=== PATIENT | male | born 1960 | race Caucasian/White ===

== ENCOUNTER 2022-10-08 11:10 | Outpatient (AMB) | payer BC, SELFPAY ==
--- NOTE | 2022-10-08 11:19 | A.OFFPC_ITS ---
Vital Signs 10/08/22 11:20 Height 5 ft 10 in Weight 289 lb 4 oz BMI 41.5 BP 120/68 Blood Pressure Location Rt brachial Position Sitting Respiration 12 Pulse 63 Pulse Source Pulse Oximeter Temp 98.5 F Temp Source Oral Pulse Oximetry (%) 98 Intake Visit Reasons: New patient-High BP, high cholesterol, sleep apnea Intake Note: Patient is here as a new patient with history of high blood pressure, high cholesterol, and sleep apnea. Allergies No Known Allergies Allergy (Verified 10/08/22 11:47) Tobacco use date assessed: 10/08/22 Dental Screening Dental Screen Date: 10/08/22 Did you have a dental visit in the last 12 months?: Yes Did you have a dental problem in the last 6 months where you did not have access to dental care?: No Was dental information given to patient?: Patient has dentist HPI HPI Comments History of Present Illness Details 62-year-old male presents to [facility] care He notes he relocated from [place] in October 2018 He notes he was last evaluated by his former PCP/Family Practice in [place], and had blood work done 2-3 months ago He reports PMH significant for HTN, HLD, and BOUBACAR. He is on Lisniopril, Simvastatin, and ASA. He uses a CPAP device for sleep. He requests a referral to get fitted for new CPAP device. He offers no complaints at this time. He notes he had colonoscopy 2-3 months ago: one benign polyp; f/u in 7 years He states he has not received the shingrix vaccines and intends to get vaccinated [facility] Medical History (Updated 10/08/22 @ 12:14 by Tc Bingham CNP) High blood pressure High cholesterol Sleep apnea Surgical History (Updated 10/08/22 @ 11:30 by Radha Loving CMA) H/O left knee surgery History of cholecystectomy History of dental surgery Family History (Updated 10/08/22 @ 11:33 by Radha Loving CMA) Mother Early onset Alzheimer's dementia Ovarian cancer Father Lung cancer Emphysema lung Sister Stroke Social History (Updated 10/08/22 @ 11:35 by Radha Loving CMA) Household Members: Spouse Housing: House Are you a primary transitional care manager to a significant other at home: No Do you presently have visiting nurse or other home services: No 75 years or older and lives alone: No Alcohol intake: former Patient Tobacco Use Status: Never used Tobacco e-Cigarette/Vaping Use: Never Used Special eliza needs: No service: No Current occupational status: employed Current occupation: sales Cognitive needs: No Hearing needs: No Vision needs: Yes (reading glasses) Questionnaire PHQ-9 Over the last 2 weeks, how often have you been bothered by any of the following problems? 1. Little interest or pleasure in doing things: not at all 2. Feeling down, depressed, or hopeless: not at all 3. Trouble falling or staying asleep, or sleeping too much: not at all 4. Feeling tired or having little energy: several days 5. Poor appetite or overeating: not at all 6. Feeling bad about yourself - or that you are a failure or have let yourself or your family down: not at all 7. Trouble concentrating on things, such as reading the newspaper or watching television: not at all 8. Moving or speaking so slowly that other people could have noticed. Or the opposite - being so fidgety or restless that you have been moving around a lot more than usual: not at all 9. Thoughts that you would be better off or of hurting yourself in some way: not at all Total score: 1 Depression Screening Interpretation: Negative Source: Developed by Drs. Nikko Sharma, Faby Lozada, Luis Carlos House and colleagues, with an educational jesus from [employer]. Thrive Questionnaire I am a: Patient What is your living situation today?: I have a steady place to live Within the past 12 months, did the food you bought not last and you didn't have the money to get more?: Never true Within the past 12 months, did you worry whether your food would run out before you got money to buy more?: Never true Do you have trouble paying for medicines?: No Do you have trouble getting transportation to medical appointments?: No Do you have trouble paying your heating and electricity bill?: No Do you have trouble taking care of your child, family member or friend?: No Do you have trouble with day-to-day activities such as bathing, preparing meals, shopping, managing finances, etc.?: No Are you currently unemployed and looking for a job?: No Are you interested in more education?: No AUDIT C Alcohol Use Questionnaire (AUDIT-C) 1. How often do you have a drink containing alcohol?: Never 3. How often do you have six or more drinks on one occasion?: Never Total Score: 0 KALA-7 AMB Questionnaire KALA-7 Feeling nervous, anxious, or on edge: 0 = Not at all Not being able to stop or control worryin = Not at all Worrying too much about different things: 0 = Not at all Trouble relaxin = Not at all Being so restless that it is hard to sit still: 0 = Not at all Becoming easily annoyed or irritable: 1 = Several days Feeling afraid as if something awful might happen: 0 = Not at all Total KALA-7 score (0-4 normal; 5-9 mild; 10-14 moderate; 15-21 severe): 1 Source: Developed by Drs. Nikko Sharma, Faby Lozada, Luis Carlos House and colleagues, with an educational jesus from [employer]. Review of Systems Const Details: Denies chills, Denies fatigue, Denies fever(s), Denies headache(s) and Denies weakness HEENT Denies change in vision, Denies dizziness, Denies headache(s), Denies hearing loss, Denies nasal congestion, Denies sinus pain, Denies sinus pressure and Denies sore throat Card Denies chest pain, Denies lightheadedness, Denies dyspnea and Denies other (palpitations) Resp Denies cough, Denies dyspnea and Denies wheezing GI Denies abdominal pain, Denies melena, Denies hematochezia, Denies change in hilairo l habits, Denies dyspepsia and Denies nausea Denies hematuria and Denies dysuria Musc Denies abnormal gait, Denies myalgias, Denies arthralgias, Denies numbness and Denies tingling Skin/Breast Denies rash, Denies unusual bruising and Denies wounds Neuro Denies abnormal gait, Denies dizziness, Denies headache(s), Denies memory loss, Denies numbness, Denies Sensory deficit (Neuro), Denies tingling and Denies weakness Psych Denies anxiety, Denies depression and Denies memory loss Endo Denies cold intolerance, Denies fatigue, Denies heat intolerance, Denies polydipsia and Denies polyuria Arias/Lymph Denies easy bleeding and Denies easy bruising Aller/Immun Denies wheezing Physical exam (Primary Care) Vital Signs: Last Vital Signs Temp 98.5 F 10/08/22 11:20 Pulse 63 10/08/22 11:20 Resp 12 10/08/22 11:20 BP 120/68 10/08/22 11:20 Pulse Ox 98 10/08/22 11:20 BMI result Body Mass Index 41.5 Tobacco/Smoking Status: Tobacco use Status Tobacco use date assessed 10/08/22 10/08/22 11:35 Patient Tobacco Use Status Never used Tobacco 10/08/22 11:35 e-Cigarette/Vaping Use Never Used 10/08/22 11:35 PHQ-9: PHQ-9 Score PHQ-9: Total score 1 10/08/22 11:49 Depression Screening Interpretation: Negative Const Other: General: no acute distress, well developed, alert and awake Nutritional Appearance: well nourished Orientation/consciousness: patient oriented x3 HENMT Head: Yes normocephalic and Yes atraumatic Ears: hearing grossly normal bilaterally and TM's normal bilaterally General nose exam: Normal external nose present and Normal nares present Mouth: Normal oral and palatal mucosa present and moist mucous membranes Teeth and gingiva: dentition normal Throat: Yes oropharynx normal Eyes Pupils: Equal, round and reactive pupils present and Pupil accommodation reflex normal EOM: EOMs intact bilaterally Neck Neck: Yes normal visual inspection, Yes no lymphadenopathy and Yes trachea midline Thyroid: Thyroid normal Carotids: no bruits Lymphatic: no lymphadenopathy noted Chest Chest palpation & inspection: normal inspection of the chest Resp Effort & Inspection: normal respiratory effort Auscultation: clear to auscultation bilaterally Cardio Rate: regular rate Rhythm: regular rhythm Heart sounds: S1 normal heart sound present, S2 normal heart sound present, no gallops, no murmurs and no rubs Bruits: no abdominal aortic bruits and no carotid bruits GI Palpation (GI): No Abdominal aortic bruit present, Soft to palpation, nontender, No hepatosplenomegaly present and No Rebound tenderness present Auscultation: normal bowel sounds General: Yes no CVA tenderness Back/Spine/Pelvis Back: no CVA tenderness Cervical Spine: cervical ROM normal and No Cervical spine tenderness Thoracic/Lumbar Spine: thoraco-lumbar ROM normal, No pain with thoraco-lumbar ROM, No thoracic spinal tenderness and No lumbar spinal tenderness Skin General: warm and dry. Normal skin color. Normal skin turgor Lesions: no lesions Rashes: no rashes Trauma: no lacerations or abrasions Wounds: no wounds Nails: normal Neuro General: patient oriented x3, gait normal and CN's II-XI intact bilaterally Cranial nerves: Yes Equal, round and reactive pupils present Cognition (Neuro): normal cognition Gait exam (Neuro): Normal gait present Motor exam (neuro): 5/5 motor strength present throughout Sensory Exam: No Sensory deficit (Neuro) Deep tendon reflexes (DTR's): Right patellar reflex intensity grade: 2+ and Left patellar reflex intensity grade: 2+ Extrem General: Yes normal to inspection, No edema and No calf tenderness Psych Appearance: grossly normal Affect: normal affect Attitude: cooperative Thought process: Normal thought process present Assessment and Plan Assessment & Plan (1) Normal physical examination, routine: Code(s): Z00.00 - Encounter for general adult medical examination without abnormal findings Plan: No significant physical restrictions or limitations noted Awaiting health record from his previous provider for review, including labs Follow-up in 1 month for hypertension and hyperlipidemia Return sooner with symptoms or concerns Verbalized understanding and agreed with treatment plan. (2) High blood pressure: Code(s): I10 - Essential (primary) hypertension Plan: Blood pressure is 120/68, within goal of less than 140/90 Lisinopril as prescribed Low-sodium diet encouraged Verbalized understanding and agreed with treatment plan. (3) High cholesterol: Code(s): E78.00 - Pure hypercholesterolemia, unspecified Plan: Will review lipid panel once previous record is received and reviewed Simvastatin as prescribed Advised to limit foods high in saturated fat and avoid foods high trans fat Routine exercise encouraged Verbalized understanding and agreed with treatment plan. (4) Sleep apnea: Code(s): G47.30 - Sleep apnea, unspecified Plan: He reports history of ASA and uses a CPAP device for sleep. He requests a re ferral to get fitted for new CPAP device. Referred to sleep medicine Return with symptoms or concerns Verbalized understanding and agreed with treatment plan. (5) Vaccine counseling: Code(s): Z71.85 - Encounter for immunization safety counseling Plan: He states he has not received the shingrix vaccines and intends to get vaccinated. Instructed on importance of vaccination and encouraged to get the Shingrix vaccines Verbalized understanding and agreed with the plan. Orders: Referrals Sleep Medicine Referral G47.30 - Sleep apnea, unspecified Coding Level of Care Code New Pt Prev Care 40-64y(90146) Diagnoses Normal physical examination, routine Z00.00 High blood pressure I10 High cholesterol E78.00 Sleep apnea G47.30 Vaccine counseling Z71.85
[2022-10-08 11:20] VITALS: BP 120/68; PULSE 63; RESP 12; TEMP 36.9; O2SAT 98; BMI 41.5
== END 2022-10-08 12:07 | disposition home or self-care (01) ==
PROVIDERS: PCP Nurse Practitioner Family; Visit Provider Nurse Practitioner Family
DX: Z00.00 Encounter for general adult medical examination without abnormal findings (principal); I10 Essential (primary) hypertension; E78.00 Pure hypercholesterolemia, unspecified; G47.30 Sleep apnea, unspecified; Z71.85 Encounter for immunization safety counseling
CPT/HCPCS: 99386

== ENCOUNTER 2022-10-31 13:49 | Outpatient (AMB) | payer BC, SELFPAY ==
--- NOTE | 2022-10-31 14:03 | MHC.OFFVIS ---
Intake Vital Signs 10/31/22 14:04 Height 5 ft 10 in Weight 292 lb 2 oz BMI 41.9 BP 150/80 H Blood Pressure Location Rt brachial Position Sitting Pulse 52 Pulse Source Pulse Oximeter Pulse Oximetry (%) 97 Oxygen Delivery Method Room Air Intake Visit Reasons: I-[employer] INST[employer]ER: Sleep Apnea-confirmed Intake Note: Patient presents for sleep apnea. Patient states I've had the machine for 10 years now i just need prescription for my machine. Allergies No Known Allergies Allergy (Verified 10/31/22 14:06) HPI HPI Comments History of Present Illness Details 62 y/o male patient with hx of HTN and HLD presents for new in-person visit to manage BOUBACAR. Pt reports that he was diagnosed with BOUBACAR about 10 years ago, and has been using CPAP. He had received a new CPAP two years ago, but has not received supplies for a while. He moved from [place] to [place] and his primary care also has changed. He has been purchasing CPAP supplies from online. His current mask and headgears are worn out and loose. His home care company is [employer] [facility] [employer]. He states that he uses his CPAP nightly, sleeps well with CPAP about 8-10 hours. He is rested and wakes up refreshed in the morning. Denies daytime tiredness of sleepiness. [facility] Medical History (Updated 10/31/22 @ 15:37 by Dominic Ayala CNP) High blood pressure High cholesterol Sleep apnea Surgical History History of dental surgery H/O left knee surgery History of cholecystectomy Family History Mother Early onset Alzheimer's dementia Ovarian cancer Father Lung cancer Emphysema lung Sister Stroke Social History (Updated 10/08/22 @ 11:35 by Radha Loving CMA) Household Members: Spouse Housing: House Are you a primary technical healthcare consultant to a significant other at home: No Do you presently have visiting nurse or other home services: No 75 years or older and lives alone: No Alcohol intake: former Patient Tobacco Use Status: Never used Tobacco e-Cigarette/Vaping Use: Never Used Special eliza needs: No service: No Current occupational status: employed Current occupation: sales Cognitive needs: No Hearing needs: No Vision needs: Yes (reading glasses) Review of Systems Const All systems reviewed & are unremarkable except as noted in HPI and below ENT Reports Normal hearing present Neuro Reports Normal hearing present Physical Exam Vital Signs: Last Vital Signs Pulse 52 10/31/22 14:04 BP 150/80 H 10/31/22 14:04 Pulse Ox 97 10/31/22 14:04 Oxygen Delivery Method Room Air 10/31/22 14:04 BMI result Body Mass Index 41.9 Const General: cooperative Nutritional Appearance: obese Orientation/consciousness: patient oriented x3 Neck Neck: Yes full ROM and Yes supple Resp Effort & Inspection: normal respiratory effort and able to speak in complete sentences Neuro General: patient oriented x3, gait normal and moves all extremities Cranial nerves: Yes Bilaterally intact EOM present, Yes Normal facial strength present, Yes Midline tongue present, Yes Symmetric palate elevation present, Yes Normal hearing present, Yes Ability to bilaterally rotate head present and Yes Ability to bilaterally elevate shoulders present Cognition (Neuro): normal cognition Gait exam (Neuro): Normal gait present Motor exam (neuro): 5/5 motor strength present throughout, Pronator motor function not present and no tremor noted Psych Appearance: grossly normal Mental Status: mental status grossly normal Speech and movement: Normal speech and movement present Affect: normal affect Attitude: cooperative Assessment & Plan Assessment & Plan (1) BOUBACAR on CPAP: Code(s): G47.33 - Obstructive sleep apnea (adult) (pediatric) Plan Advised patient to continue to use CPAP nightly and more than 4 hrs. Pt experiences good clinical effects using CPAP, having quality sleep and daytime tiredness has improved. Will request CPAP compliance. Called [facility] and started supply order processing. Will send new CPAP supply prescription. Coding Level of Care Code New Pt Level 4 (72920) Diagnoses BOUBACAR on CPAP G47.33 Time Spent (min) 55
[2022-10-31 14:04] VITALS: BP 150/80; PULSE 52; O2SAT 97; BMI 41.9
== END 2022-10-31 15:05 | disposition home or self-care (01) ==
PROVIDERS: PCP Nurse Practitioner Family; Visit Provider Nurse Practitioner Family
DX: G47.33 Obstructive sleep apnea (adult) (pediatric) (principal)
CPT/HCPCS: 99204

== ENCOUNTER → 2022-10-31 13:49 | Outpatient (BNVA) | payer BC, SELFPAY | PROVIDERS: PCP Nurse Practitioner Family; Visit Provider Nurse Practitioner Family ==

== ENCOUNTER 2023-01-14 11:41 | Outpatient (AMB) | payer BC, SELFPAY ==
[2023-01-14 11:44] VITALS: BP 136/76; PULSE 66; RESP 13; TEMP 36.5; O2SAT 97; BMI 43.2
--- NOTE | 2023-01-14 11:44 | A.OFFPC_ITS ---
Vital Signs 01/14/23 11:44 Height 5 ft 10 in Weight 301 lb 6 oz BMI 43.2 BP 136/76 Blood Pressure Location Rt brachial Position Sitting Respiration 13 Pulse 66 Pulse Source Pulse Oximeter Temp 97.7 F Temp Source Temporal Artery Scan Pulse Oximetry (%) 97 Oxygen Delivery Method Room Air Intake Visit Reasons: 3 mos HTN, HLD Intake Note: Patient is concerned about swelling in his right knee. Patient states that hes been sleeping with C-PAP machine but still wakes up tired. Patient states he hasn't been feeling like himself and eels a bit off and has been experiencing a little bit of light headedness and has become unbalanced. Resource Director Required: No Accompanied by: Spouse Allergies No Known Allergies Allergy (Verified 01/14/23 12:26) Medication List - Last Reconciled 01/14/23 by Tc Bingham CNP aspirin (Adult Aspirin Regimen) 81 mg PO DAILY elderberry fruit mg PO BEDTIME lisinopril 5 mg PO DAILY simvastatin 40 mg PO DAILY Tobacco use date assessed: 10/08/22 Dental Screening Dental Screen Date: 01/14/23 Did you have a dental visit in the last 12 months?: Yes Did you have a dental problem in the last 6 months where you did not have access to dental care?: No Was dental information given to patient?: Patient has dentist HPI HPI Comments History of Present Illness Details 62-year-old male, accompanied by his wif angely, presents for hypertension and hyperlipidemia follow-up He had blood work done by his former PCP before his last visit. Those lab results were requested for review but has not been received He admits to taking his medications as prescribed without adverse reactions He reports intermittent fatigue and lightheadedness. He admits to getting adequate sleep on CPAP He also reports intermittent right lateral knee pain and swelling. He notes he was informed by his chiropractor that he may have a torn meniscus. He has history of total left knee replacement [facility] Medical History High blood pressure High cholesterol Sleep apnea Surgical History History of dental surgery H/O left knee surgery History of cholecystectomy Family History Mother Early onset Alzheimer's dementia Ovarian cancer Father Lung cancer Emphysema lung Sister Stroke Social History Household Members: Spouse Housing: House Are you a primary nonfarm animal caretaker to a significant other at home: No Do you presently have visiting nurse or other home services: No 75 years or older and lives alone: No Alcohol intake: former Patient Tobacco Use Status: Never used Tobacco e-Cigarette/Vaping Use: Never Used Special eliza needs: No service: No Current occupational status: employed Current occupation: sales Cognitive needs: No Hearing needs: Yes Vision needs: Yes (reading glasses) Review of Systems Const Details: Const Denies chills, Denies fatigue, Denies fever(s), Denies headache(s) and Denies weakness ENT Denies dizziness and Denies headache(s) Card Denies chest pain, Denies lightheadedness, Denies dyspnea and Denies other (Palpitations) Resp Denies cough, Denies dyspnea, Denies wheezing and Denies other ( shortness of breath) GI Denies abdominal pain, Denies melena, Denies hematochezia, Denies change in bowel habits, Denies dyspepsia and Denies nausea Denies hematuria and Denies dysuria Musc Denies abnormal gait, Denies myalgias, Denies arthralgias, Denies numbness and Denies tingling Skin/Breast Denies rash, Denies unusual bruising and Denies wounds Neuro Denies abnormal gait, Denies dizziness, Denies headache(s), Denies memory loss, Denies numbness, Denies Sensory deficit (Neuro), Denies tingling and Denies weakness Psych Denies anxiety, Denies depression, Denies memory loss Endo Denies cold intolerance, Denies fatigue, Denies heat intolerance, Denies polydipsia and Denies polyuria Aller/Immun Denies wheezing Physical exam (Primary Care) Vital Signs: Last Vital Signs Temp 97.7 F 01/14/23 11:44 Pulse 66 01/14/23 11:44 Resp 13 01/14/23 11:44 BP 136/76 01/14/23 11:44 Pulse Ox 97 01/14/23 11:44 Oxygen Delivery Method Room Air 01/14/23 11:44 BMI result Body Mass Index 43.2 Tobacco/Smoking Status: Tobacco use Status Tobacco use date assessed 10/08/22 01/14/23 11:55 Patient Tobacco Use Status Never used Tobacco 01/14/23 11:55 e-Cigarette/Vaping Use Never Used 01/14/23 11:55 Const Other: General: no acute distress and well developed Nutritional Appearance: well nourished Orientation/consciousness: patient oriented x3 HENMT Head: Yes normocephalic and Yes atraumatic Eyes General: appearance normal, both eyes and all related structures Pupils: Equal, round and reactive pupils present EOM: EOMs intact bilaterally Resp Effort & Inspection: normal respiratory effort Auscultation: clear to auscultation bilaterally Cardio Rate: regular rate Rhythm: regular rhythm Heart sounds: S1 normal heart sound present, S2 normal heart sound present, no gallops, no murmurs and no rubs GI Palpation (GI): No Abdominal aortic bruit present, Soft to palpation, nontender, No hepatosplenomegaly present and No Rebound tenderness present Auscultation: normal bowel sounds General: Yes no CVA tenderness Back/Spine/Pelvis Back: no CVA tenderness Cervical Spine: cervical ROM normal and No Cervical spine tenderness Thoracic/Lumbar Spine: thoraco-lumbar ROM normal, No pain with thoraco-lumbar ROM, No thoracic spinal tenderness and No lumbar spinal tenderness Extrem General: Yes normal to inspection, No edema and No calf tenderness Skin General: warm and dry. Normal skin color. Normal skin turgor Lesions: no lesions Rashes: no rashes Trauma: no lacerations or abrasions Wounds: no wounds Nails: normal Neuro General: patient oriented x3, gait normal and no focal neuro deficit Cranial nerves: Yes Equal, round and reactive pupils present Cognition (Neuro): normal cognition Gait exam (Neuro): Normal gait present Sensory Exam: No Sensory deficit (Neuro) Psych Appearance: grossly normal Affect: normal affect Attitude: cooperative Thought process: Normal thought process present Assessment and Plan Assessment & Plan (1) High blood pressure: Code(s): I10 - Essential (primary) hypertension Qualifiers: Hypertension type: primary hypertension Qualified Code(s): I10 - Essential (primary) hypertension Plan: Blood pressure is on the high end of normal, 136/76 Will increase lisinopril to 10 mg daily. Take as prescribed Low-sodium diet encouraged Follow-up in 1 month or return sooner with symptoms or concerns Verbalized understanding and agreed with treatment plan (2) High cholesterol: Code(s): E78.00 - Pure hypercholesterolemia, unspecified Plan: Will check lipid panel level and make changes as needed. Advised to fast for 10-12 hours, may drink water, and get blood work done before his next visit Continue to take simvastatin as prescribed Advised to limit foods high in saturated fat and avoid foods high trans fat Routine exercise encouraged Follow-up in 1 month Verbalized understanding and agreed with treatment plan (3) Fatigue: Code(s): R53.83 - Other fatigue Plan: Reports intermittent fatigue and lightheadedness despite getting adequate sleep Will check labs including TSH and vitamin-D levels and make changes as needed Adequate hydration encouraged Follow-up in 1 month or return sooner with worsening or new symptoms Verbalized understanding and agreed with treatment plan (4) Lightheadedness: Code(s): R42 - Dizziness and giddiness Plan: As above (5) Right knee pain: Code(s): M25.561 - Pain in right knee Plan: He also reports intermittent right lateral knee pain and swelling. He notes he was informed by his chiropractor that he may have a torn meniscus No current pain or swelling May take Tylenol or ibuprofen for pain or discomfort Warm/cold compresses encouraged Referred to Orthopedics Return with worsening or new signs and symptoms Verbalized understanding and agreed with treatment (6) Swelling of right knee joint: Code(s): M25.461 - Effusion, right knee Plan: As above Orders: Orders Complete Blood Count Auto Diff Today I10 - Essential (primary) hypertension, R42 - Dizziness and giddiness, R53.83 - Other fatigue, Z00.00 - Encounter for general adult medical examination without abnormal findings Lipid Panel Today E78.00 - Pure hypercholesterolemia, unspecified Vitamin D 25-OH Total Today R53.83 - Other fatigue Comprehensive [place]. Panel Fast Today I10 - Essential (primary) hypertension, R42 - Dizziness and giddiness, R53.83 - Other fatigue, Z00.00 - Encounter for general adult medical examination without abnormal findings TSH reflex Free T4 Today R53.83 - Other fatigue, Z00.00 - Encounter for general adult medical examination without abnormal findings Referrals Orthopedics Referral M25.461 - Effusion, right knee, M25.561 - Pain in right knee Medications: New lisinopril 10 mg PO DAILY 90 days 90 tabs 1RF Coding Level of Care Code Est Pt Level 3 (61966) Diagnoses Primary hypertension I10 Hypertension type: primary hypertension High cholesterol E78.00 Fatigue R53.83 Lightheadedness R42 Right knee pain M25.561 Swelling of right knee joint M25.461
== END 2023-01-14 12:39 | disposition home or self-care (01) ==
PROVIDERS: PCP Nurse Practitioner Family; Visit Provider Nurse Practitioner Family
DX: I10 Essential (primary) hypertension (principal); E78.00 Pure hypercholesterolemia, unspecified; R53.83 Other fatigue; R42 Dizziness and giddiness; M25.561 Pain in right knee; M25.461 Effusion, right knee
CPT/HCPCS: 99213

== ENCOUNTER 2023-01-18 12:31 | Outpatient (REF) | payer BC, SELFPAY ==
[2023-01-18 13:29] LABS: MANUAL DIFF FLAG NO
[2023-01-18 13:35] LABS: Basophils Absolute Auto 0.1 X10*3/uL (0.0-0.2); Basophils Percent Auto 1.3 % (0-2); Eosinophils Absolute Auto 0.3 X10*3/uL (0.0-0.4); Eosinophils Percent Auto 3.7 % (0-4); Hematocrit 41.9 % (42.0-52.0); Hemoglobin 14.1 g/dl (14.0-18.0); Imm Gran Abs Auto 0.04 X10*3/uL (0.00-0.03); Imm Gran Pct Auto 0.6 % (0.0-0.4); Lymphocytes Absolute Auto 1.7 X10*3/uL (1.2-4.9); Lymphocytes Percent Auto 24.2 % (20-40); Mean Corpuscular HGB Conc 33.7 g/dl (31.0-36.0); Mean Corpuscular Hemoglobin 29.6 pg (27.0-33.0); Mean Platelet Volume 12.5 fL (9.4-12.4); Monocytes Absolute Auto 0.6 X10*3/uL (0.1-1.2); Monocytes Percent Auto 8.9 % (2-11); Neutrophils Absolute Auto 4.3 x10*3/uL (2.0-8.3); Neutrophils Percent Auto 61.3 % (45-73); Platelet Count 181 X10*3/uL (160-400); Red Blood Count 4.76 X10*6/uL (4.60-5.80); Red Cell Distribution Width 12.6 % (11.0-16.0)
[2023-01-18 14:19] LABS: Alanine Aminotransferase 37 U/L (0-40); Alkaline Phosphatase 88 U/L (39-117); Anion Gap 10 (12-20); Aspartate Amino Transferase 22 U/L (5-37); Bilirubin Total 0.7 mg/dL (0.0-1.0); Blood Urea Nitrogen 22 mg/dL (9-16); Calcium 8.6 mg/dL (8.4-10.2); Carbon Dioxide 27 mmol/L (22-29); Chloride 108 mmol/L (96-108); Cholesterol 158 mg/dL (<200); Estimated Glomerular Filt Rate > 60; Glucose Fasting 87 mg/dL (60-99); HDL Cholesterol 33 mg/dL (>40); LDL Cholesterol Calculated 112 mg/dL (<100); Potassium 4.1 mmol/L (3.3-5.1); Sodium 141 mmol/L (135-145); Total Protein 7.2 g/dL (6.5-8.0); Triglycerides 68 mg/dL (<150)
[2023-01-18 15:20] LABS: TSH reflex Free T4 1.68 uIU/mL (0.32-4.0); Vitamin D 25-OH Total 25.3 ng/mL (>30)
== END 2023-01-18 12:32 | disposition home or self-care (01) ==
LOC: HO.WFDLDS 12:31
PROVIDERS: Visit Provider Nurse Practitioner Family
DX: Z00.00 Encounter for general adult medical examination without abnormal findings (principal); R42 Dizziness and giddiness; R53.83 Other fatigue; I10 Essential (primary) hypertension; E78.00 Pure hypercholesterolemia, unspecified
CPT/HCPCS: 36415; 80053; 80061; 82306; 84443; 85025

== ENCOUNTER 2023-01-31 09:35 | Outpatient (REF) | payer BC, SELFPAY | END 2023-01-31 09:36 | disposition home or self-care (01) | LOC: HO.HOSX 09:35 | PROVIDERS: Visit Provider Orthopaedic Surgery | DX: M25.561 Pain in right knee (principal) | CPT/HCPCS: 73562 ==

== ENCOUNTER 2023-01-31 14:38 | Outpatient (AMB) | payer BC, SELFPAY ==
--- NOTE | 2023-01-31 15:00 | A.OFFVIS_ITS ---
Intake Intake Visit Reasons: Right knee pain Intake Note: Mr. Ayala presents with progressively worsening right knee pain. He did undergo left total knee replacement surgery approximately 6 years ago while living in [place]. He reports minimal discomfort in his left knee. He vincent cribes his right knee pain as sharp in nature. Most of the pain is along the medial aspect of his knee. He has had cortisone injections in the past which gave him minimal relief. He has also done physical therapy exercises which aggravated his pain. He has tried Tylenol and anti-inflammatory medicines which gave him minimal relief. He would like to hold off on right total knee replacement surgery for as long as possible. Allergies No Known Allergies Allergy (Verified 01/31/23 15:00) Medication List - Last Reconciled 01/31/23 by Quique Lewis MD aspirin (Adult Aspirin Regimen) 81 mg PO DAILY cholecalciferol (vitamin D3) 25 mcg PO DAILY 90 days elderberry fruit mg PO BEDTIME lisinopril 10 mg PO DAILY 90 days simvastatin 40 mg PO DAILY [facility] Medical History High blood pressure High cholesterol Sleep apnea Surgical History History of dental surgery H/O left knee surgery History of cholecystectomy Family History Mother Early onset Alzheimer's dementia Ovarian cancer Father Lung cancer Emphysema lung Sister Stroke Social History Household Members: Spouse Housing: House Are you a primary lawn care technician to a significant other at home: No Do you presently have visiting nurse or other home services: No 75 years or older and lives alone: No Alcohol intake: former Patient Tobacco Use Status: Never used Tobacco e-Cigarette/Vaping Use: Never Used Special eliza needs: No service: No Current occupational status: employed Current occupation: sales Cognitive needs: No Hearing needs: Yes Vision needs: Yes (reading glasses) Physical Exam Const Other: Well-nourished well-developed very friendly male awake alert and oriented x3 in no acute distress Extrem Other: Bilateral lower extremity examination shows good capillary refill, no skin lesions noted, normal sensation light touch Right knee examination shows a minimal effusion, palpable crepitus with range of motion, pain with range of motion, range of motion from -3 degrees to 115 degrees, no instability Results Reviewed Results Reviewed: X-rays of the patient's right knee taken today show moderate joint space narrowing most significant in the medial compartment and patellofemoral joint, subchondral sclerosis, no acute bony abnormalities Assessment & Plan Assessment & Plan (1) Right knee pain: Code(s): M25.561 - Pain in right knee Plan Mr. Ayala presents with progressively worsening right knee pain due to degenerative joint disease. I had a lengthy discussion with the patient regarding the treatment options. He wishes to hold off on right total knee replacement surgery for as long as possible. I agree with this plan. He has not gotten good relief from cortisone injections in the past. Thus, I will see whether not the patient's insurance company will cover a viscosupplementation injection for his right knee. I will see him back once the injection is available. Feel free to call me at any time should questions regarding his orthopedic management arise. Thank you very much for asking me to see this very friendly gentleman. I spent 22 minutes in reviewing the patient's records and imaging studies, seeing the patient and documenting in the medical record. Orders: Orders XR knee RT 3V Today M25.561 - Pain in right knee Coding Level of Care Code New Pt Level 2 (02360) Diagnoses Right knee pain M25.561
== END 2023-01-31 15:36 | disposition home or self-care (01) ==
PROVIDERS: PCP Nurse Practitioner Family; Visit Provider Orthopaedic Surgery
DX: M25.561 Pain in right knee (principal)
CPT/HCPCS: 99202

== ENCOUNTER 2023-02-14 11:28 | Outpatient (AMB) | payer BC, SELFPAY ==
--- NOTE | 2023-02-14 11:32 | MHC.PC.OV ---
Vital Signs 02/14/23 11:33 Height 5 ft 10 in Weight 305 lb 4 oz BMI 43.8 BP 146/78 H Blood Pressure Location Rt brachial Position Sitting Respiration 13 Pulse 65 Pulse Source Pulse Oximeter Temp 97.5 F Temp Source Temporal Artery Scan Pulse Oximetry (%) 96 Oxygen Delivery Method Room Air Intake Visit Reasons: f/u HTN, HLD Privacy Specialist Required: No Accompanied by: Self / Same As Patient Allergies No Known Allergies Allergy (Verified 02/14/23 11:52) Medication List - Last Reconciled 02/14/23 by Tc Bingham CNP aspirin (Adult Aspirin Regimen) 81 mg PO DAILY cholecalciferol (vitamin D3) 25 mcg PO DAILY 90 days elderberry fruit mg PO BEDTIME lisinopril 10 mg PO DAILY 90 days simvastatin 40 mg PO DAILY Tobacco use date assessed: 02/14/23 Dental Screening Dental Screen Date: 02/14/23 Did you have a dental visit in the last 12 months?: Yes Did you have a dental problem in the last 6 months where you did not have access to dental care?: No Was dental information given to patient?: Patient has dentist HPI HPI Comments History of Present Illness Details 62-year-old male presents for hypertension and hyperlipidemia follow-up He admits to taking his medications as prescribed without adverse reactions He offers no complaints and denies acute symptoms at this time [facility] Medical History High blood pressure High cholesterol Sleep apnea Surgical History History of dental surgery H/O left knee surgery History of cholecystectomy Family History Mother Early onset Alzheimer's dementia Ovarian cancer Father Lung cancer Emphysema lung Sister Stroke Social History Household Members: Spouse Housing: House Are you a primary critical care nurse to a significant other at home: No Do you presently have visiting nurse or other home services: No 75 years or older and lives alone: No Alcohol intake: former Patient Tobacco Use Status: Never used Tobacco e-Cigarette/Vaping Use: Never Used Special eliza needs: No service: No Current occupational status: employed Current occupation: sales Cognitive needs: No Hearing needs: No Vision needs: Yes (reading glasses) Review of Systems Const Details: Const Denies chills, Denies fatigue, Denies fever(s), Denies headache(s) and Denies weakness ENT Denies dizziness and Denies headache(s) Card Denies chest pain, Denies lightheadedness, Denies dyspnea and Denies other (Palpitations) Resp Denies cough, Denies dyspnea, Denies wheezing and Denies other ( shortness of breath) GI Denies abdominal pain, Denies melena, Denies hematochezia, Denies change in bowel habits, Denies dyspepsia and Denies nausea Denies hematuria and Denies dysuria Musc Denies abnormal gait, Denies myalgias, Denies arthralgias, Denies numbness and Denies tingling Skin/Breast Denies rash, Denies unusual bruising and Denies wounds Neuro Denies abnormal gait, Denies dizziness, Denies headache(s), Denies memory loss, Denies numbness, Denies Sensory deficit (Neuro), Denies tingling and Denies weakness Psych Denies anxiety, Denies depression, Denies memory loss Endo Denies cold intolerance, Denies fatigue, Denies heat intolerance, Denies polydipsia and Denies polyuria Aller/Immun Denies wheezing Physical exam (Primary Care) Vital Signs: Last Vital Signs Temp 97.5 F 02/14/23 11:33 Pulse 65 02/14/23 11:33 Resp 13 02/14/23 11:33 BP 146/78 H 02/14/23 11:33 Pulse Ox 96 02/14/23 11:33 Oxygen Delivery Method Room Air 02/14/23 11:33 BMI result Body Mass Index 43.8 Tobacco/Smoking Status: Tobacco use Status Tobacco use date assessed 02/14/23 02/14/23 11:39 Patient Tobacco Use Status Never used Tobacco 02/14/23 11:39 e-Cigarette/Vaping Use Never Used 02/14/23 11:39 Const Other: General: no acute distress and well developed Nutritional Appearance: well nourished Orientation/consciousness: patient oriented x3 HENMT Head: Yes normocephalic and Yes atraumatic Eyes General: appearance normal, both eyes and all related structures Pupils: Equal, round and reactive pupils present EOM: EOMs intact bilaterally Resp Effort & Inspection: normal respiratory effort Auscultation: clear to auscultation bilaterally Cardio Rate: regular rate Rhythm: regular rhythm Heart sounds: S1 normal heart sound present, S2 normal heart sound present, no gallops, no murmurs and no rubs GI Palpation (GI): No Abdominal aortic bruit present, Soft to palpation, nontender, No hepatosplenomegaly present and No Rebound tenderness present Auscultation: normal bowel sounds General: Yes no CVA tenderness Back/Spine/Pelvis Back: no CVA tenderness Cervical Spine: cervical ROM normal and No Cervical spine tenderness Thoracic/Lumbar Spine: thoraco-lumbar ROM normal, No pain with thoraco-lumbar ROM, No thoracic spinal tenderness and No lumbar spinal tenderness Extrem General: Yes normal to inspection, No edema and No calf tenderness Skin General: warm and dry. Normal skin color. Normal skin turgor Neuro General: patient oriented x3, gait normal and no focal neuro deficit Cranial nerves: Yes Equal, round and reactive pupils present Cognition (Neuro): normal cognition Gait exam (Neuro): Normal gait present Sensory Exam: No Sensory deficit (Neuro) Psych Appearance: grossly normal Affect: normal affect Attitude: cooperative Thought process: Normal thought process present Assessment and Plan Assessment & Plan (1) High blood pressure: Code(s): I10 - Essential (primary) hypertension Qualifiers: Hypertension type: primary hypertension Qualified Code(s): I10 - Essential (primary) hypertension Plan: Resting blood pressure is 146/78, above goal of less than 140/90 Lisinopril increased to 20 mg daily. Take as prescribed Low-sodium diet and routine exercise encouraged Follow-up in 2 weeks or return sooner with symptoms or concerns Verbalized understanding and agreed with treatment plan (2) High cholesterol: Code(s): E78.00 - Pure hypercholesterolemia, unspecified Plan: Recent lab results reviewed with the patient LDL is low, 33 Continue to take simvastatin as prescribed Advised to limit foods high in saturated fat and avoid foods high in trans fat Routine exercise encouraged Will continue to monitor Verbalized understanding and agreed with treatment plan (3) Vitamin D deficiency: Code(s): E55.9 - Vitamin D deficiency, unspecified Plan: Recent vitamin-D level is low, 25.3 Continue to take vitamin D3 as prescribed Will recheck vitamin-D 3 liver few weeks Verbalized understanding and agreed with treatment plan Medications: New lisinopril 20 mg PO DAILY 30 days 30 tabs 3RF Discontinued lisinopril Discontinued Reason: Doctor's Order 10 mg PO DAILY 90 days 90 tabs 1RF Coding Level of Care Code Est Pt Level 3 (38345) Diagnoses Primary hypertension I10 Hypertension type: primary hypertension High cholesterol E78.00 Vitamin D deficiency E55.9
[2023-02-14 11:33] VITALS: BP 146/78; PULSE 65; RESP 13; TEMP 36.4; O2SAT 96; BMI 43.8
== END 2023-02-14 12:01 | disposition home or self-care (01) ==
PROVIDERS: PCP Nurse Practitioner Family; Visit Provider Nurse Practitioner Family
DX: I10 Essential (primary) hypertension (principal); E78.00 Pure hypercholesterolemia, unspecified; E55.9 Vitamin D deficiency, unspecified
CPT/HCPCS: 99213

== ENCOUNTER 2023-03-01 16:13 | Outpatient (AMB) | payer BC, SELFPAY ==
--- NOTE | 2023-03-01 16:21 | MHC.PC.OV ---
Vital Signs 03/01/23 16:22 03/01/23 16:34 Height 5 ft 10 in Weight 298 lb 8 oz BMI 42.8 BP 136/78 130/70 Blood Pressure Location Rt brachial Rt brachial Position Sitting Sitting Respiration 13 Pulse 67 Pulse Source Pulse Oximeter Temp 97.5 F Temp Source Temporal Artery Scan Pulse Oximetry (%) 99 Oxygen Delivery Method Room Air Intake Visit Reasons: f/u HTN, HLD Relationship Advisor Required: No Accompanied by: Self / Same As Patient Allergies No Known Allergies Allergy (Verified 03/01/23 16:29) Medication List - Last Reconciled 03/01/23 by Tc Bingham CNP aspirin (Adult Aspirin Regimen) 81 mg PO DAILY cholecalciferol (vitamin D3) 25 mcg PO DAILY 90 days elderberry fruit mg PO BEDTIME lisinopril 20 mg PO DAILY 30 days simvastatin 40 mg PO DAILY Tobacco use date assessed: 02/14/23 Dental Screening Dental Screen Date: 03/01/23 Did you have a dental visit in the last 12 months?: Yes Did you have a dental problem in the last 6 months where you did not have access to dental care?: No Was dental information given to patient?: Patient has dentist HPI HPI Comments History of Present Illness Details 62-year-old male presents for hypertension follow-up He admits to taking his medications as prescribed without adverse reactions He offers no complaints and denies acute symptoms at this time REPLACED BY [facility] Medical History High blood pressure High cholesterol Sleep apnea Surgical History History of dental surgery H/O left knee surgery History of cholecystectomy Family History Mother Early onset Alzheimer's dementia Ovarian cancer Father Lung cancer Emphysema lung Sister Stroke Social History Household Members: Spouse Housing: House Are you a primary animal care technician to a significant other at home: No Do you presently have visiting nurse or other home services: No 75 years or older and lives alone: No Alcohol intake: former Patient Tobacco Use Status: Never used Tobacco e-Cigarette/Vaping Use: Never Used Special eliza needs: No service: No Current occupational status: employed Current occupation: sales Cognitive needs: No Hearing needs: No Vision needs: No (reading glasses) Review of Systems Const Details: Const Denies chills, Denies fatigue, Denies fever(s), Denies headache(s) and Denies weakness ENT Denies dizziness and Denies headache(s) Card Denies chest pain, Denies lightheadedness, Denies dyspnea and Denies other (Palpitations) Resp Denies cough, Denies dyspnea, Denies wheezing and Denies other ( shortness of breath) GI Denies abdominal pain, Denies melena, Denies hematochezia, Denies change in bowel habits, Denies dyspepsia and Denies nausea Denies hematuria and Denies dysuria Musc Denies abnormal gait, Denies myalgias, Denies arthralgias, Denies numbness and Denies tingling Skin/Breast Denies rash, Denies unusual bruising and Denies wounds Neuro Denies abnormal gait, Denies dizziness, Denies headache(s), Denies memory loss, Denies numbness, Denies Sensory deficit (Neuro), Denies tingling and Denies weakness Psych Denies anxiety, Denies depression, Denies memory loss Endo Denies cold intolerance, Denies fatigue, Denies heat intolerance, Denies polydipsia and Denies polyuria Aller/Immun Denies wheezing Physical exam (Primary Care) Vital Signs: Last Vital Signs Temp 97.5 F 03/01/23 16:22 Pulse 67 03/01/23 16:22 Resp 13 03/01/23 16:22 BP 136/78 03/01/23 16:22 Pulse Ox 99 03/01/23 16:22 Oxygen Delivery Method Room Air 03/01/23 16:22 BMI result Body Mass Index 42.8 Tobacco/Smoking Status: Tobacco use Status Tobacco use date assessed 02/14/23 03/01/23 16:27 Patient Tobacco Use Status Never used Tobacco 03/01/23 16:27 e-Cigarette/Vaping Use Never Used 03/01/23 16:27 Const Other: General: no acute distress and well developed Nutritional Appearance: well nourished Orientation/consciousness: patient oriented x3 HENMT Head: Yes normocephalic and Yes atraumatic Eyes General: appearance normal, both eyes and all related structures Pupils: Equal, round and reactive pupils present EOM: EOMs intact bilaterally Resp Effort & Inspection: normal respiratory effort Auscultation: clear to auscultation bilaterally Cardio Rate: regular rate Rhythm: regular rhythm Heart sounds: S1 normal heart sound present, S2 normal heart sound present, no gallops, no murmurs and no rubs GI Palpation (GI): No Abdominal aortic bruit present, Soft to palpation, nontender, No hepatosplenomegaly present and No Rebound tenderness present Auscultation: normal bowel sounds General: Yes no CVA tenderness Back/Spine/Pelvis Back: no CVA tenderness Cervical Spine: cervical ROM normal and No Cervical spine tenderness Thoracic/Lumbar Spine: thoraco-lumbar ROM normal, No pain with thoraco-lumbar ROM, No thoracic spinal tenderness and No lumbar spinal tenderness Extrem General: Yes normal to inspection, No edema and No calf tenderness Skin General: warm and dry. Normal skin color. Normal skin turgor Neuro General: patient oriented x3, gait normal and no focal neuro deficit Cranial nerves: Yes Equal, round and reactive pupils present Cognition (Neuro): normal cognition Gait exam (Neuro): Normal gait present Sensory Exam: No Sensory deficit (Neuro) Psych Appearance: grossly normal Affect: normal affect Attitude: cooperative Thought process: Normal thought process present Assessment and Plan Assessment & Plan (1) High blood pressure: Code(s): I10 - Essential (primary) hypertension Qualifiers: Hypertension type: primary hypertension Qualified Code(s): I10 - Essential (primary) hypertension Plan: Resting blood pressure is 130/70, within goal of less than 140/90 Continue current treatment Low-sodium diet and routine exercise encouraged Follow-up in 2 months or return sooner with symptoms or concerns Verbalized understanding and agreed with treatment plan (2) Vitamin D deficiency: Code(s): E55.9 - Vitamin D deficiency, unspecified Plan: Previous vitamin-D level was low Continue to take vitamin D3 as prescribed Advised to get vitamin-D blood work done before his next visit Verbalized understanding and agreed with the plan Orders: Orders Vitamin D 25-OH Total Today E55.9 - Vitamin D deficiency, unspecified Coding Level of Care Code Est Pt Level 3 (26899) Diagnoses Primary hypertension I10 Hypertension type: primary hypertension Vitamin D deficiency E55.9
[2023-03-01 16:22] VITALS: BP 136/78; PULSE 67; RESP 13; TEMP 36.4; O2SAT 99; BMI 42.8
[2023-03-01 16:34] VITALS: BP 130/70
== END 2023-03-01 16:38 | disposition home or self-care (01) ==
PROVIDERS: PCP Nurse Practitioner Family; Visit Provider Nurse Practitioner Family
DX: I10 Essential (primary) hypertension (principal); E55.9 Vitamin D deficiency, unspecified
CPT/HCPCS: 99213

== ENCOUNTER 2023-03-29 11:12 | Outpatient (AMB) | payer BC, SELFPAY ==
[2023-03-29 11:18] VITALS: BP 136/80; PULSE 64; RESP 14; TEMP 36.4; O2SAT 99; BMI 42.1
--- NOTE | 2023-03-29 11:18 | MHC.PC.OV ---
Vital Signs 03/29/23 11:18 Height 5 ft 10 in Weight 293 lb 8 oz BMI 42.1 BP 136/80 Blood Pressure Location Rt brachial Position Sitting Respiration 14 Pulse 64 Pulse Source Pulse Oximeter Temp 97.6 F Temp Source Temporal Artery Scan Pulse Oximetry (%) 99 Oxygen Delivery Method Room Air Intake Visit Reasons: Abdominal Discomfort/ Nasal Pressure Academic Manager Required: No Accompanied by: Self / Same As Patient Allergies No Known Allergies Allergy (Verified 03/29/23 11:42) Medication List - Last Reconciled 03/29/23 by Tc Bingham CNP aspirin (Adult Aspirin Regimen) 81 mg PO DAILY cholecalciferol (vitamin D3) 25 mcg PO DAILY 90 days elderberry fruit mg PO BEDTIME lisinopril 20 mg PO DAILY 30 days simvastatin 40 mg PO DAILY Tobacco use date assessed: 02/14/23 Dental Screening Dental Screen Date: 03/29/23 Did you have a dental visit in the last 12 months?: Yes Did you have a dental problem in the last 6 months where you did not have access to dental care?: No Was dental information given to patient?: Patient has dentist HPI HPI Comments History of Present Illness Details 62-year-old male presents with complaints of chest congestion, intermittent cough with brown-greenish sputum, runny nose, and brain fog for the past 2 weeks. She had a headache that subsided. He reports intermittent discomfort. He has been taking Omeprazole. He took some mucinex without relief. No fevery, chills, body aches, fatigue, or weakness. His granddaughter had the flu and his and everyone in his household was sick with respiratory symptoms. He has not been tested for COVID or flu. [facility] Medical History High blood pressure High cholesterol Sleep apnea Surgical History History of dental surgery H/O left knee surgery History of cholecystectomy Family History Mother Early onset Alzheimer's dementia Ovarian cancer Father Lung cancer Emphysema lung Sister Stroke Social History Household Members: Spouse Housing: House Are you a primary in home caregiver to a significant other at home: No Do you presently have visiting nurse or other home services: No Alcohol intake: former Patient Tobacco Use Status: Never used Tobacco e-Cigarette/Vaping Use: Never Used Special eliza needs: No service: No Current occupational status: employed Current occupation: [employer] Cognitive needs: No Hearing needs: No Vision needs: No (reading glasses) Review of Systems Const Details: Const Denies chills, Denies fatigue, Denies fever(s), Denies headache(s) and Denies weakness ENT Reports as per HPI Card Denies chest pain, Denies lightheadedness, Denies dyspnea and Denies other (Palpitations) Resp Reports cough, Denies dyspnea, Denies wheezing and Denies other ( shortness of breath) GI Denies abdominal pain, Denies melena, Denies hematochezia, Denies change in bowel habits, Denies dyspepsia and Denies nausea Denies hematuria and Denies dysuria Musc Denies abnormal gait, Denies myalgias, Denies arthralgias, Denies numbness and Denies tingling Skin/Breast Denies rash, Denies unusual bruising and Denies wounds Neuro Denies abnormal gait, Denies dizziness, Denies headache(s), Denies memory loss, Denies numbness, Denies Sensory deficit (Neuro), Denies tingling and Denies weakness Psych Denies anxiety, Denies depression, Denies memory loss Endo Denies cold intolerance, Denies fatigue, Denies heat intolerance, Denies polydipsia and Denies polyuria Aller/Immun Denies wheezing Physical exam (Primary Care) Vital Signs: Last Vital Signs Temp 97.6 F 03/29/23 11:18 Pulse 64 03/29/23 11:18 Resp 14 03/29/23 11:18 BP 136/80 03/29/23 11:18 Pulse Ox 99 03/29/23 11:18 Oxygen Delivery Method Room Air 03/29/23 11:18 BMI result Body Mass Index 42.1 Tobacco/Smoking Status: Tobacco use Status Tobacco use date assessed 02/14/23 03/29/23 11:24 Patient Tobacco Use Status Never used Tobacco 03/29/23 11:24 e-Cigarette/Vaping Use Never Used 03/29/23 11:24 Const Other: General: no acute distress and well developed Nutritional Appearance: well nourished Orientation/consciousness: patient oriented x3 [facility] Head is normocephalic Bilateral ear canal and TM are normal Nasal turbinates and oropharynx are pink and moist Sinuses are nontender with palpation No auricular or cervical lymphadenopathy Eyes General: appearance normal, both eyes and all related structures Pupils: Equal, round and reactive pupils present EOM: EOMs intact bilaterally Resp Effort & Inspection: normal respiratory effort Auscultation: clear to auscultation bilaterally Cardio Rate: regular rate Rhythm: regular rhythm Heart sounds: S1 normal heart sound present, S2 normal heart sound present, no gallops, no murmurs and no rubs GI Palpation (GI): No Abdominal aortic bruit present, Soft to palpation, nontender, No hepatosplenomegaly present and No Rebound tenderness present Auscultation: normal bowel sounds General: Yes no CVA tenderness Back/Spine/Pelvis Back: no CVA tenderness Cervical Spine: cervical ROM normal and No Cervical spine tenderness Thoracic/Lumbar Spine: thoraco-lumbar ROM normal, No pain with thoraco-lumbar ROM, No thoracic spinal tenderness and No lumbar spinal tenderness Extrem General: Yes normal to inspection, No edema and No calf tenderness Skin General: warm and dry. Normal skin color. Normal skin turgor Neuro General: patient oriented x3, gait normal and no focal neuro deficit Cranial nerves: Yes Equal, round and reactive pupils present Cognition (Neuro): normal cognition Gait exam (Neuro): Normal gait present Sensory Exam: No Sensory deficit (Neuro) Psych Appearance: grossly normal Affect: normal affect Attitude: cooperative Thought process: Normal thought process present Assessment and Plan Assessment & Plan (1) Viral upper respiratory illness: Code(s): J06.9 - Acute upper respiratory infection, unspecified Plan: Likely viral illness though possibly allergies. No exam evidence of bacterial infection Viral illness There is no antibiotic medication for viruses.? They must run their course.? Most average 5-7 days but 7-10 days is not uncommon and up to 14 days is still possible.? A cough is often the last symptom to resolve and this can last for weeks in some cases. Rest Hydrate well -? Drink plenty of fluids.? Especially water. Tylenol or ibuprofen for muscle aches, headache, fever/discomfort Benzonatate and cetirizine as prescribed Cannot rule out COVID-19/RSV/Flu infection Nasal swab acquired and will be sent to the lab Return for new or worsening symptoms Verbalized understanding and agreed with treatment plan. Orders: Orders SARS-CoV2/FLU/RSV Today R09.89 - Other specified symptoms and signs involving the circulatory and respiratory systems Medications: New benzonatate 200 mg PO BID PRN 20 caps 0RF cough cetirizine (All Day Allergy (cetirizine)) 10 mg PO DAILY 30 tabs 0RF 30 days Coding Level of Care Code Est Pt Level 3 (98861) Diagnoses Viral upper respiratory illness J06.9
== END 2023-03-29 11:57 | disposition home or self-care (01) ==
PROVIDERS: PCP Nurse Practitioner Family; Visit Provider Nurse Practitioner Family
DX: J06.9 Acute upper respiratory infection, unspecified (principal)
CPT/HCPCS: 99213

== ENCOUNTER 2023-03-29 11:59 | Outpatient (REF) | payer BC, SELFPAY ==
[2023-03-29 15:37] LABS: Influenza A PCR NEGATIVE (Negative); Influenza B PCR NEGATIVE (Negative); Resp Syncy Virus RNA Qual PCR NEGATIVE (Negative); SARS COV2 PCR INHOUSE NEGATIVE (Negative)
== END 2023-03-29 12:00 | disposition home or self-care (01) ==
LOC: HO.LAB 11:59
PROVIDERS: Visit Provider Nurse Practitioner Family
DX: Z11.52 Encounter for screening for COVID-19 (principal); Z20.822 Contact with and (suspected) exposure to COVID-19; R09.89 Other specified symptoms and signs involving the circulatory and respiratory systems
CPT/HCPCS: 0241U

== ENCOUNTER 2023-04-22 11:06 | Outpatient (REF) | payer BC, SELFPAY ==
[2023-04-22 14:54] LABS: Vitamin D 25-OH Total 38.6 ng/mL (>30)
== END 2023-04-22 11:07 | disposition home or self-care (01) ==
LOC: HO.WFDLDS 11:06
PROVIDERS: Visit Provider Nurse Practitioner Family
DX: E55.9 Vitamin D deficiency, unspecified (principal)
CPT/HCPCS: 36415; 82306

== ENCOUNTER 2023-04-26 16:11 | Outpatient (AMB) | payer BC, SELFPAY ==
[2023-04-26 16:21] VITALS: BP 124/76; PULSE 62; RESP 13; TEMP 36.1; O2SAT 97; BMI 42.0
--- NOTE | 2023-04-26 16:21 | A.OFFPC_ITS ---
Vital Signs 04/26/23 16:21 Height 5 ft 10 in Weight 292 lb 8 oz BMI 42.0 BP 124/76 Blood Pressure Location Rt brachial Position Sitting Respiration 13 Pulse 62 Pulse Source Pulse Oximeter Temp 97 F Temp Source Temporal Artery Scan Pulse Oximetry (%) 97 Oxygen Delivery Method Room Air Intake Visit Reasons: 2 month f/u HTN /labs Machine Lacer Required: No Accompanied by: Self / Same As Patient Allergies No Known Allergies Allergy (Verified 04/26/23 16:29) Medication List - Last Reconciled 04/26/23 by Tc Bingham CNP aspirin (Adult Aspirin Regimen) 81 mg PO DAILY benzonatate 200 mg PO BID PRN cetirizine (All Day Allergy (cetirizine)) 10 mg PO DAILY 30 days cholecalciferol (vitamin D3) 25 mcg PO DAILY 90 days elderberry fruit mg PO BEDTIME lisinopril 20 mg PO DAILY 30 days simvastatin 40 mg PO DAILY Tobacco use date assessed: 02/14/23 Dental Screening Dental Screen Date: 04/26/23 Did you have a dental visit in the last 12 months?: Yes Did you have a dental problem in the last 6 months where you did not have access to dental care?: No Was dental information given to patient?: Patient has dentist HPI HPI Comments History of Present Illness Details 62-year-old male presents for hypertensi on and vitamin-D deficiency follow-up He admits to taking his medications as prescribed without adverse reactions His current vitamin-D level is normal, 38.6 He offers no complaints and denies acute symptoms at this time [facility] Medical History High blood pressure High cholesterol Sleep apnea Surgical History History of dental surgery H/O left knee surgery History of cholecystectomy Family History Mother Early onset Alzheimer's dementia Ovarian cancer Father Lung cancer Emphysema lung Sister Stroke Social History Household Members: Spouse Housing: House Are you a primary manager home healthcare to a significant other at home: No Do you presently have visiting nurse or other home services: No 75 years or older and lives alone: No Alcohol intake: former Patient Tobacco Use Status: Never used Tobacco e-Cigarette/Vaping Use: Never Used Special eliza needs: No service: No Current occupational status: employed Current occupation: sales Cognitive needs: No Hearing needs: No Vision needs: No (reading glasses) Review of Systems Const Details: Const Denies chills, Denies fatigue, Denies fever(s), Denies headache(s) and Denies weakness ENT Denies dizziness and Denies headache(s) Card Denies chest pain, Denies lightheadedness, Denies dyspnea and Denies other (Palpitations) Resp Denies cough, Denies dyspnea, Denies wheezing and Denies other ( shortness of breath) GI Denies abdominal pain, Denies melena, Denies hematochezia, Denies change in bowel habits, Denies dyspepsia and Denies nausea Denies hematuria and Denies dysuria Musc Denies abnormal gait, Denies myalgias, Denies arthralgias, Denies numbness and Denies tingling Skin/Breast Denies rash, Denies unusual bruising and Denies wounds Neuro Denies abnormal gait, Denies dizziness, Denies headache(s), Denies memory loss, Denies numbness, Denies Sensory deficit (Neuro), Denies tingling and Denies weakness Psych Denies anxiety, Denies depression, Denies memory loss Endo Denies cold intolerance, Denies fatigue, Denies heat intolerance, Denies polydipsia and Denies polyuria Aller/Immun Denies wheezing Physical exam (Primary Care) Vital Signs: Last Vital Signs Temp 97 F 04/26/23 16:21 Pulse 62 04/26/23 16:21 Resp 13 04/26/23 16:21 BP 124/76 04/26/23 16:21 Pulse Ox 97 04/26/23 16:21 Oxygen Delivery Method Room Air 04/26/23 16:21 BMI result Body Mass Index 42.0 Tobacco/Smoking Status: Tobacco use Status Tobacco use date assessed 02/14/23 04/26/23 16:25 Patient Tobacco Use Status Never used Tobacco 04/26/23 16:25 e-Cigarette/Vaping Use Never Used 04/26/23 16:25 Const Other: General: no acute distress and well developed Nutritional Appearance: well nourished Orientation/consciousness: patient oriented x3 HENMT Head: Yes normocephalic and Yes atraumatic Eyes General: appearance normal, both eyes and all related structures Pupils: Equal, round and reactive pupils present EOM: EOMs intact bilaterally Resp Effort & Inspection: normal respiratory effort Auscultation: clear to auscultation bilaterally Cardio Rate: regular rate Rhythm: regular rhythm Heart sounds: S1 normal heart sound present, S2 normal heart sound present, no gallops, no murmurs and no rubs GI Palpation (GI): No Abdominal aortic bruit present, Soft to palpation, nontender, No hepatosplenomegaly present and No Rebound tenderness present Auscultation: normal bowel sounds General: Yes no CVA tenderness Back/Spine/Pelvis Back: no CVA tenderness Cervical Spine: cervical ROM normal and No Cervical spine tenderness Thoracic/Lumbar Spine: thoraco-lumbar ROM normal, No pain with thoraco-lumbar ROM, No thoracic spinal tenderness and No lumbar spinal tenderness Extrem General: Yes normal to inspection, No edema and No calf tenderness Skin General: warm and dry. Normal skin color. Normal skin turgor Neuro General: patient oriented x3, gait normal and no focal neuro deficit Cranial nerves: Yes Equal, round and reactive pupils present Cognition (Neuro): normal cognition Gait exam (Neuro): Normal gait present Sensory Exam: No Sensory deficit (Neuro) Psych Appearance: grossly normal Affect: normal affect Attitude: cooperative Thought process: Normal thought process present Assessment and Plan Assessment & Plan (1) High blood pressure: Code(s): I10 - Essential (primary) hypertension Qualifiers: Hypertension type: primary hypertension Qualified Code(s): I10 - Essential (primary) hypertension Plan: His blood pressure is 124/76, within goal of less than 140/90 Continue with current treatment regimen Low-sodium diet encouraged Follow-up in 3 months for hypertension and hyperlipidemia or return sooner with symptoms or concerns Verbalized understanding and agreed with treatment plan (2) Vitamin D deficiency: Code(s): E55.9 - Vitamin D deficiency, unspecified Plan: His current vitamin-D level is normal, 38.6 Continue to take vitamin D3 as prescribed Follow-up with symptoms or concerns Verbalized understanding and agreed with treatment plan Orders: Orders Lipid Panel 3 Months E78.00 - Pure hypercholesterolemia, unspecified Medications: Changed From simvastatin 40 mg PO DAILY To simvastatin 40 mg PO DAILY 30 tabs 3RF 30 days Coding Level of Care Code Est Pt Level 3 (93384) Diagnoses Primary hypertension I10 Hypertension type: primary hypertension Vitamin D deficiency E55.9
== END 2023-04-26 16:39 | disposition home or self-care (01) ==
PROVIDERS: PCP Nurse Practitioner Family; Visit Provider Nurse Practitioner Family
DX: I10 Essential (primary) hypertension (principal); E55.9 Vitamin D deficiency, unspecified
CPT/HCPCS: 99213

== ENCOUNTER 2023-07-11 09:35 | Outpatient (AMB) | payer BC, SELFPAY ==
--- NOTE | 2023-07-09 11:42 | A.OFFVIS_ITS ---
Intake Visit Reasons: O/V RT knee O.A pain Allergies No Known Allergies Allergy (Verified 04/26/23 16:29) PFSH Medical History High blood pressure High cholesterol Sleep apnea Surgical History History of dental surgery H/O left knee surgery History of cholecystectomy Family History Mother Early onset Alzheimer's dementia Ovarian cancer Father Lung cancer Emphysema lung Sister Stroke Social History Household Members: Spouse Housing: House Are you a primary regular senior care provider to a significant other at home: No Do you presently have visiting nurse or other home services: No 75 years or older and lives alone: No Alcohol intake: former Patient Tobacco Use Status: Never used Tobacco e-Cigarette/Vaping Use: Never Used Special eliza needs: No service: No Current occupational status: employed Current occupation: sales Cognitive needs: No Hearing needs: No Vision needs: No (reading glasses) Coding
[2023-07-11 09:38] VITALS: BMI 41.9
--- NOTE | 2023-07-11 09:38 | A.OFFVIS_ITS ---
Vital Signs 07/11/23 09:38 Height 5 ft 10 in Weight 292 lb BMI 41.9 Intake Visit Reasons: O/V RT knee O.A pain Intake Note: Arjun is a 62 year old male w ho presents for a follow up for his Right knee pain. Patient reports at his last appointment gel injections were discussed but have been denied so he would like to discuss other options. He has had cortisone injections which gave him minimal relief. He has also tried Tylenol and ibuprofen which gave him only mild relief. He has had cortisone injections. The most recent cortisone injection gave him minimal relief. He wishes to hold off on right total knee replacement surgery for as long as possible. Allergies No Known Allergies Allergy (Verified 07/11/23 09:48) Medication List - Last Reconciled 07/11/23 by Quique Lewis MD aspirin (Adult Aspirin Regimen) 81 mg PO DAILY benzonatate 200 mg PO BID PRN celecoxib (Celebrex) 200 mg PO DAILY cetirizine (All Day Allergy (cetirizine)) 10 mg PO DAILY 30 days cholecalciferol (vitamin D3) 25 mcg PO DAILY 90 days elderberry fruit mg PO BEDTIME lisinopril 20 mg PO DAILY 30 days methylprednisolone (Medrol (Justin)) PO PER PKG DIR simvastatin 40 mg PO DAILY 30 days PFSH Medical History High blood pressure High cholesterol Sleep apnea Surgical History History of dental surgery H/O left knee surgery History of cholecystectomy Family History Mother Early onset Alzheimer's dementia Ovarian cancer Father Lung cancer Emphysema lung Sister Stroke Social History Household Members: Spouse Housing: House Are you a primary care provider to a significant other at home: No Do you presently have visiting nurse or other home services: No 75 years or older and lives alone: No Alcohol intake: former Patient Tobacco Use Status: Never used Tobacco e-Cigarette/Vaping Use: Never Used Special eliza needs: No service: No Current occupational status: employed Current occupation: sales Cognitive needs: No Hearing needs: No Vision needs: No (reading glasses) Physical Exam Vital Signs: BMI result Body Mass Index 41.9 Const Other: Well-nourished well-developed very friendly male awake alert and oriented x3 in no acute distress Extrem Other: Bilateral lower extremity examination shows good capillary refill, no skin lesions noted, normal sensation light touch Right knee examination shows a minimal effusion, palpable crepitus with range of motion, pain with range of motion, no instability Results Reviewed Results Reviewed: X-rays of the patient's right knee show joint space narrowing, subchondral sclerosis, no acute bony abnormalities Assessment & Plan Assessment & Plan (1) Arthritis of right knee: Code(s): M17.11 - Unilateral primary osteoarthritis, right knee Category: Medical Plan Mr. Ayala presents with right knee pain due to degenerative joint disease. I had a lengthy discussion with the patient regarding the treatment options. He wishes to hold off on total knee replacement surgery for as long as possible. I agree with this plan. I did give him a prescription for a Medrol Dosepak as well as Celebrex which he will begin following the Dosepak. He will continue with his activity modifications. He will contact me prior to his follow-up appointment in 6 weeks should any questions or concerns arise. Feel free to call me at any time should questions regarding his orthopedic management arise. I spent 21 minutes in reviewing the patient's records and imaging studies, seeing the patient and documenting in the medical record. Medications: New methylprednisolone (Medrol (Justin)) PO PER PKG DIR 21 ea 0RF celecoxib (Celebrex) The patient is instructed to begin the Celebrex after completing the Medrol Dosepak. 200 mg PO DAILY 30 caps 2RF Coding Level of Care Code Est Pt Level 3 (42779) Diagnoses Arthritis of right knee M17.11
== END 2023-07-11 10:10 | disposition home or self-care (01) ==
PROVIDERS: PCP Nurse Practitioner Family; Visit Provider Orthopaedic Surgery
DX: M17.11 Unilateral primary osteoarthritis, right knee (principal)
CPT/HCPCS: 99214

== ENCOUNTER → 2023-07-11 09:35 | Outpatient (BNVA) | payer BC, SELFPAY | PROVIDERS: PCP Nurse Practitioner Family; Visit Provider Orthopaedic Surgery ==

== ENCOUNTER 2023-07-22 11:49 | Outpatient (REF) | payer BC, SELFPAY ==
[2023-07-22 15:11] LABS: Cholesterol 153 mg/dL (<200); HDL Cholesterol 36 mg/dL (>40); LDL Cholesterol Calculated 94 mg/dL (<100); Triglycerides 116 mg/dL (<150)
== END 2023-07-22 11:50 | disposition home or self-care (01) ==
LOC: HO.WFDLDS 11:49
PROVIDERS: Visit Provider Nurse Practitioner Family
DX: E78.00 Pure hypercholesterolemia, unspecified (principal)
CPT/HCPCS: 36415; 80061

== ENCOUNTER 2023-07-26 16:07 | Outpatient (AMB) | payer BC, SELFPAY ==
[2023-07-26 16:12] VITALS: BP 122/80; PULSE 56; O2SAT 96; BMI 42.2
--- NOTE | 2023-07-26 16:12 | A.OFFPC_ITS ---
Vital Signs 07/26/23 16:12 Height 5 ft 10 in Weight 294 lb BMI 42.2 BP 122/80 Blood Pressure Location Lt brachial Position Sitting Pulse 56 Pulse Source Pulse Oximeter Pulse Oximetry (%) 96 Oxygen Delivery Method Room Air Intake Visit Reasons: HTN, HLD Intake Note: Patient is here to follow up on hypertension, and high cholesterol. He complains of being tired a lot for a few months now. Allergies No Known Allergies Allergy (Verified 07/26/23 16:30) Medication List - Last Reconciled 07/26/23 by Tc Bingham CNP aspirin (Adult Aspirin Regimen) 81 mg PO DAILY benzonatate 200 mg PO BID PRN celecoxib (Celebrex) 200 mg PO DAILY cetirizine (All Day Allergy (cetirizine)) 10 mg PO DAILY 30 days cholecalciferol (vitamin D3) 25 mcg PO DAILY 90 days elderberry fruit mg PO BEDTIME lisinopril 20 mg PO DAILY 30 days methylprednisolone (Medrol (Justin)) PO PER PKG DIR simvastatin 40 mg PO DAILY 30 days Tobacco use date assessed: 07/26/23 Dental Screening Dental Screen Date: 04/26/23 HPI HPI Comments History of Present Illness Details 62 y/o male presents for HTN and HLD fol low up He admits to taking his medications as prescribed w/o adverse reactions He notes that he has been feeling fatigue for the past 1 month even with adequate amount of sleep. He notes that he takes his vitamin D3 as prescribed No acute symptoms at this time [facility] Medical History High blood pressure High cholesterol Sleep apnea Surgical History History of dental surgery H/O left knee surgery History of cholecystectomy Family History Mother Early onset Alzheimer's dementia Ovarian cancer Father Lung cancer Emphysema lung Sister Stroke Social History Household Members: Spouse Housing: House Are you a primary landcare officer to a significant other at home: No Do you presently have visiting nurse or other home services: No 75 years or older and lives alone: No Alcohol intake: former Patient Tobacco Use Status: Never used Tobacco e-Cigarette/Vaping Use: Never Used Special eliza needs: No service: No Current occupational status: employed Current occupation: sales Cognitive needs: No Hearing needs: No Vision needs: No (reading glasses) Review of Systems Const Details: Const Denies chills, Reports fatigue, Denies fever(s), Denies headache(s) and Denies weakness ENT Denies dizziness and Denies headache(s) Card Denies chest pain, Denies lightheadedness, Denies dyspnea and Denies other (Palpitations) Resp Denies cough, Denies dyspnea, Denies wheezing and Denies other (shortness of breath) GI Denies abdominal pain, Denies melena, Denies hematochezia, Denies change in bowel habits, Denies dyspepsia and Denies nausea Denies hematuria and Denies dysuria Musc Denies abnormal gait, Denies myalgias, Denies arthralgias, Denies numbness and Denies tingling Skin/Breast Denies rash, Denies unusual bruising and Denies wounds Neuro Denies abnormal gait, Denies dizziness, Denies headache(s), Denies memory loss, Denies numbness, Denies Sensory deficit (Neuro), Denies tingling and Denies weakness Psych Denies anxiety, Denies depression, Denies memory loss Endo Denies cold intolerance, Reports fatigue, Denies heat intolerance, Denies polydipsia and Denies polyuria Aller/Immun Denies wheezing Physical exam (Primary Care) BMI result Body Mass Index 42.2 Tobacco/Smoking Status: Tobacco use Status Tobacco use date assessed 02/14/23 04/26/23 16:25 Patient Tobacco Use Status Never used Tobacco 04/26/23 16:25 e-Cigarette/Vaping Use Never Used 04/26/23 16:25 Const Other: General: no acute distress and well developed Nutritional Appearance: well nourished Orientation/consciousness: patient oriented x3 HENMT Head: Yes normocephalic and Yes atraumatic Eyes General: appearance normal, both eyes and all related structures Pupils: Equal, round and reactive pupils present EOM: EOMs intact bilaterally Resp Effort & Inspection: normal respiratory effort Auscultation: clear to auscultation bilaterally Cardio Rate: regular rate Rhythm: regular rhythm Heart sounds: S1 normal heart sound present, S2 normal heart sound present, no gallops, no murmurs and no rubs GI Palpation (GI): No Abdominal aortic bruit present, Soft to palpation, nontender, No hepatosplenomegaly present and No Rebound tenderness present Auscultation: normal bowel sounds General: Yes no CVA tenderness Back/Spine/Pelvis Back: no CVA tenderness Cervical Spine: cervical ROM normal and No Cervical spine tenderness Thoracic/Lumbar Spine: thoraco-lumbar ROM normal, No pain with thoraco-lumbar ROM, No thoracic spinal tenderness and No lumbar spinal tenderness Extrem General: Yes normal to inspection, No edema and No calf tenderness Skin General: warm and dry. Normal skin color. Normal skin turgor Neuro General: patient oriented x3, gait normal and no focal neuro deficit Cranial nerves: Yes Equal, round and reactive pupils present Cognition (Neuro): normal cognition Gait exam (Neuro): Normal gait present Sensory Exam: No Sensory deficit (Neuro) Psych Appearance: grossly normal Affect: normal affect Attitude: cooperative Thought process: Normal thought process present Assessment and Plan Assessment & Plan (1) High blood pressure: Code(s): I10 - Essential (primary) hypertension Qualifiers: Hypertension type: primary hypertension Qualified Code(s): I10 - Essential (primary) hypertension Plan: Blood pressure is 122/80, within goal of less than 140/90 Continue current treatment regimen Low-sodium diet encouraged Follow-up in 10 weeks for an extended physical exam or sooner with symptoms or concerns Verbalized understanding and agreed with the treatment plan (2) High cholesterol: Code(s): E78.00 - Pure hypercholesterolemia, unspecified Plan: Recent triglyceride, total cholesterol, and LDL levels are unremarkable, 116, 153, and 94 respectively; HDL is slightly low, 36 Continue current treatment regimen Advised to limit foods high in saturated fat or avoid foods high in trans fat Routine exercise encouraged Follow-up in 10 weeks Verbalized understanding and agreed with treatment plan (3) Fatigue: Code(s): R53.83 - Other fatigue Plan: Reports fatigue for the past 1 month even with adequate amount of sleep He has been taking vitamin D3 as prescribed Will check vitamin-D, TSH/T4, and electrolytes levels and make changes as needed Routine exercise encouraged Follow-up with worsening or new symptoms Verbalized understanding and agreed with the treatment plan (4) Laboratory tests ordered as part of a complete physical exam (CPE): Code(s): Z00.00 - Encounter for general adult medical examination without abnormal findings Plan: Fasting labs ordered in preparation of a complete physical exam. Advised to fast for at least 10 hours before getting labs drawn. May drink water Verbalized understanding and agreed with treatment plan. Orders: Orders Complete Blood Count no Diff Today R53.83 - Other fatigue, Z00.00 - Encounter for general adult medical examination without abnormal findings Comprehensive [place]. Panel Fast Today R53.83 - Other fatigue, Z00.00 - Encounter for general adult medical examination without abnormal findings UA CC w/rflx Micro + Cult Today Z00.00 - Encounter for general adult medical examination without abnormal findings Vitamin D 25-OH Total Today R53.83 - Other fatigue Microalbumin, Random (w Creat) Today Z00.00 - Encounter for general adult medical examination without abnormal findings PSA, Ultra Sensitive Today Z00.00 - Encounter for general adult medical examination without abnormal findings TSH reflex Free T4 Today R53.83 - Other fatigue Coding Level of Care Code Est Pt Level 4 (54284) Complex EM visit Add On G2211 Diagnoses Primary hypertension I10 Hypertension type: primary hypertension High cholesterol E78.00 Fatigue R53.83 Laboratory tests ordered as part of a complete physical exam (CPE) Z00.00
== END 2023-07-26 16:36 | disposition home or self-care (01) ==
PROVIDERS: PCP Nurse Practitioner Family; Visit Provider Nurse Practitioner Family
DX: I10 Essential (primary) hypertension (principal); E78.00 Pure hypercholesterolemia, unspecified; R53.83 Other fatigue; Z00.00 Encounter for general adult medical examination without abnormal findings
CPT/HCPCS: 99214

== ENCOUNTER 2023-07-29 11:08 | Outpatient (REF) | payer BC, SELFPAY ==
[2023-07-29 15:00] LABS: Hematocrit 43.4 % (42.0-52.0); Hemoglobin 14.3 g/dl (14.0-18.0); Mean Corpuscular HGB Conc 32.9 g/dl (31.0-36.0); Mean Corpuscular Hemoglobin 29.4 pg (27.0-33.0); Mean Corpuscular Volume 89.3 fL (80.0-98.0); Mean Platelet Volume 12.7 fL (9.4-12.4); Platelet Count 188 X10*3/uL (160-400); Red Blood Count 4.86 X10*6/uL (4.60-5.80); Red Cell Distribution Width 13.1 % (11.0-16.0); White Blood Count 7.2 X10*3/uL (4.8-10.8)
[2023-07-29 15:03] LABS: Appearance Urine Clear; Color Urine Yellow; Glucose Urine UA Negative (Negative); Leukocyte Esterase Urine Negative (Negative); Nitrite Urine Negative (Negative); PH 5.5 (5.0-9.0); Specific Gravity - Urine 1.025 (1.005-1.025); Urine Blood Negative (Negative); Urine Ketones Negative (Negative); Urine Protein Trace mg/dL (Neg-Trace)
[2023-07-29 15:31] LABS: Alanine Aminotransferase 35 U/L (0-40); Alkaline Phosphatase 86 U/L (39-117); Anion Gap 11 (12-20); Aspartate Amino Transferase 23 U/L (5-37); Bilirubin Total 0.5 mg/dL (0.0-1.0); Blood Urea Nitrogen 19 mg/dL (9-16); Calcium 9.2 mg/dL (8.4-10.2); Carbon Dioxide 28 mmol/L (22-29); Chloride 108 mmol/L (96-108); Estimated Glomerular Filt Rate > 60; Glucose Fasting 91 mg/dL (60-99); Potassium 4.2 mmol/L (3.3-5.1); Sodium 143 mmol/L (135-145); Total Protein 7.1 g/dL (6.5-8.0)
[2023-07-29 15:41] LABS: Creatinine Urine 182.33 mg/dL; Microalbum/Creatinine Ratio Ur 4.9 ug/mg cr (<30)
[2023-07-29 15:50] LABS: TSH reflex Free T4 1.26 uIU/mL (0.32-4.0); Vitamin D 25-OH Total 32.3 ng/mL (>30)
[2023-08-06 21:23] LABS: PSA, Ultra Sensitive 1.79 ng/mL
== END 2023-07-29 11:09 | disposition home or self-care (01) ==
LOC: HO.WFDLDS 11:08
PROVIDERS: Visit Provider Nurse Practitioner Family
DX: Z00.00 Encounter for general adult medical examination without abnormal findings (principal); R53.83 Other fatigue; Z12.5 Encounter for screening for malignant neoplasm of prostate
CPT/HCPCS: 36415; 80053; 81003; 82043; 82306; 82570; 84153; 84443; 85027

== ENCOUNTER 2023-08-14 13:39 | Outpatient (AMB) | payer BC, SELFPAY ==
--- NOTE | 2023-08-14 13:42 | A.OFFVIS_ITS ---
Intake Visit Reasons: O/V RT knee O.A pain-follow up Intake Note: Arjun is a 62 year old male who presents to the office today for a follow up for his right knee O.A. Pt was given Medrol and celebrex at his previous visit. Pt has finished his medrol and is currently taking the celebrex. The patient states that the Celebrex gives him mild relief. He did undergo left total knee replacement surgery in 2017. He wishes to hold off on right total knee replacement surgery for as long as possible. He has done physical therapy exercises which aggravated his pain. He is due to go on a cruise next month. Allergies No Known Allergies Allergy (Verified 08/14/23 13:42) Medication List - Last Reconciled 08/14/23 by Quique Lewis MD aspirin (Adult Aspirin Regimen) 81 mg PO DAILY benzonatate 200 mg PO BID PRN celecoxib (Celebrex) 200 mg PO DAILY cetirizine (All Day Allergy (cetirizine)) 10 mg PO DAILY 30 days cholecalciferol (vitamin D3) 25 mcg PO DAILY 90 days elderberry fruit mg PO BEDTIME lisinopril 20 mg PO DAILY 30 days simvastatin 40 mg PO DAILY 30 days PFSH Medical History High blood pressure High cholesterol Sleep apnea Surgical History History of dental surgery H/O left knee surgery History of cholecystectomy Family History Mother Early onset Alzheimer's dementia Ovarian cancer Father Lung cancer Emphysema lung Sister Stroke Social History Household Members: Spouse Housing: House Are you a primary foster care therapist to a significant other at home: No Do you presently have visiting nurse or other home services: No 75 years or older and lives alone: No Alcohol intake: former Patient Tobacco Use Status: Never used Tobacco e-Cigarette/Vaping Use: Never Used Special eliza needs: No service: No Current occupational status: employed Current occupation: sales Cognitive needs: No Hearing needs: No Vision needs: No (reading glasses) Physical Exam Const Other: Well-nourished well-developed very friendly male awake alert and oriented x3 in no acute distress Extrem Other: Bilateral lower extremity examination shows good capillary refill, no skin lesions noted, normal sensation light touch Right knee examination shows a minimal effusion, palpable crepitus with range of motion, pain with range of motion, range of motion from -3 degrees to 115 degrees, no instability Results Reviewed Results Reviewed: X-rays of the patient's right knee show joint space narrowing, subchondral sclerosis, no acute bony abnormalities Assessment & Plan Assessment & Plan (1) Arthritis of right knee: Code(s): M17.11 - Unilateral primary osteoarthritis, right knee Category: Medical Plan Mr. Ayala presents with right knee pain due to degenerative joint disease. I had a lengthy discussion with the patient regarding the treatment options. He wishes to hold off on right total knee replacement surgery for as long as possible. I agree with this plan. The patient is interested in proceeding with a cortisone injection just prior to his cruise next month. The patient will follow-up at that time. Feel free to call me at any time should questions regarding his orthopedic management arise. I spent 20 minutes in reviewing the patient's records and imaging studies, seeing the patient and documenting in the medical record. Coding Level of Care Code Est Pt Level 3 (56600) Diagnoses Arthritis of right knee M17.11
== END 2023-08-14 14:09 | disposition home or self-care (01) ==
PROVIDERS: PCP Nurse Practitioner Family; Visit Provider Orthopaedic Surgery
DX: M17.11 Unilateral primary osteoarthritis, right knee (principal)
CPT/HCPCS: 99213

== ENCOUNTER → 2023-08-14 13:39 | Outpatient (BNVA) | payer BC, SELFPAY | PROVIDERS: PCP Nurse Practitioner Family; Visit Provider Orthopaedic Surgery ==

== ENCOUNTER 2023-09-18 14:33 | Outpatient (AMB) | payer BC, SELFPAY ==
--- NOTE | 2023-09-18 14:37 | MHC.OFFVIS ---
Intake Visit Reasons: O/V RT knee O.A pain-follow up Intake Note: Arjun is a 63 year old male who presents with complaints of progressively worsening right knee pain. He describes his pain as sharp in nature. He did undergo left total knee replacement surgery several years ago. He reports minimal discomfort in his left knee. He would like to hold off on right total knee replacement surgery for as long as possible. Has tried Tylenol and Celebrex which gave him mild relief. He has done physical therapy exercises which aggravated his pain. Allergies No Known Allergies Allergy (Verified 09/18/23 14:37) Medication List - Last Reconciled 09/18/23 by Quique Lewis MD aspirin (Adult Aspirin Regimen) 81 mg PO DAILY benzonatate 200 mg PO BID PRN celecoxib (Celebrex) 200 mg PO DAILY cetirizine (All Day Allergy (cetirizine)) 10 mg PO DAILY 30 days cholecalciferol (vitamin D3) 25 mcg PO DAILY 90 days elderberry fruit mg PO BEDTIME lisinopril 20 mg PO DAILY 30 days simvastatin 40 mg PO DAILY 30 days [facility] Medical History High blood pressure High cholesterol Sleep apnea Surgical History History of dental surgery H/O left knee surgery History of cholecystectomy Family History Mother Early onset Alzheimer's dementia Ovarian cancer Father Lung cancer Emphysema lung Sister Stroke Social History Household Members: Spouse Housing: House Are you a primary career technical education teacher to a significant other at home: No Do you presently have visiting nurse or other home services: No 75 years or older and lives alone: No Alcohol intake: former Patient Tobacco Use Status: Never used Tobacco e-Cigarette/Vaping Use: Never Used Special eilza needs: No service: No Current occupational status: employed Current occupation: sales Cognitive needs: No Hearing needs: No Vision needs: No (reading glasses) Physical Exam Const Other: Well-nourished well-developed very friendly male awake alert and oriented x3 in no acute distress Extrem Other: Bilateral lower extremity examination shows good capillary refill, no skin lesions noted, normal sensation light touch Right knee examination shows a minimal effusion, palpable crepitus with range of motion, pain with range of motion, range of motion from -3 degrees to 115 degrees, no instability Office Procedures Joint Injection/Aspiration Joint Injection/Aspiration Primary Site: right knee Prep: site was prepped using aseptic technique Injected: 40 mg of, DepoMedrol and 1% plain lidocaine Procedure: The patient tolerated the procedure well Coding - Large joint Procedure code (CPT) selection complete Results Reviewed Results Reviewed: X-rays of the patient's right knee taken previously show joint space narrowing, subchondral sclerosis, no acute bony abnormalities Assessment & Plan Assessment & Plan (1) Arthritis of right knee: Code(s): M17.11 - Unilateral primary osteoarthritis, right knee Category: Medical Plan Mr. Ayala presents with progressively worsening right knee pain due to degenerative joint disease. I had a lengthy discussion with the patient regarding the treatment options. He wishes to hold off on right total knee replacement surgery for as long as possible. I agree with this plan. The risks and benefits of a right knee cortisone injection were discussed at length with the patient. The patient wished to proceed. He tolerated the injection well. He will continue with his home exercise program. Will follow up with me on an as-needed basis should his symptoms not plateau at an unacceptable level over the next few months. Feel free to call me at any time should questions regarding his orthopedic management arise. I spent 21 minutes in reviewing the patient's records and imaging studies, seeing the patient and documenting in the medical record. Orders: Orders AMB Joint Injection/Aspiration 09/18/23 M17.11 - Unilateral primary osteoarthritis, right knee Coding Level of Care Code Est Pt Level 3 (20999) Diagnoses Arthritis of right knee M17.11 CPT Codes Coding - Large joint: 53674 - Large joint ([id number])
== END 2023-09-18 14:58 | disposition home or self-care (01) ==
PROVIDERS: PCP Nurse Practitioner Family; Visit Provider Orthopaedic Surgery
DX: M17.11 Unilateral primary osteoarthritis, right knee (principal)
CPT/HCPCS: 20610; 99213

== ENCOUNTER → 2023-09-18 14:33 | Outpatient (BNVA) | payer BC, SELFPAY | PROVIDERS: PCP Nurse Practitioner Family; Visit Provider Orthopaedic Surgery | DX: M17.11 Unilateral primary osteoarthritis, right knee (principal) | CPT/HCPCS: 20610; J1010 ==

== ENCOUNTER 2023-10-18 07:54 | Outpatient (AMB) | payer BC, SELFPAY ==
--- NOTE | 2023-10-18 07:58 | MHC.PC.OV ---
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 Allergies No Known Allergies Allergy (Verified 10/18/23 08:11) Medication List - Last Reconciled 10/18/23 by Tc Bingham CNP aspirin (Adult Aspirin Regimen) 81 mg PO DAILY celecoxib (Celebrex) 200 mg PO DAILY cholecalciferol (vitamin D3) 25 mcg PO DAILY 90 days elderberry fruit mg PO BEDTIME lisinopril 20 mg PO DAILY 30 days simvastatin 40 mg PO DAILY 30 days Tobacco use date assessed: 10/18/23 Fall risk assessment: 1 Fall in past year Last assessed Fall Risk: 10/18/23 Dental Screening Dental Screen Date: 10/18/23 Did you have a dental visit in the last 12 months?: Yes Did you have a dental problem in the last 6 months where you did not have access to dental care?: No Was dental information given to patient?: Patient has dentist HPI HPI Comments History of Present Illness Details 63-year-old male presents for an extended physical exam He has past medical history significant for hypertension, hyperlipidemia, obstructive sleep apnea, vitamin-D deficiency, morbid obesity, and osteoarthritis the right knee He admits to taking his medications as prescribed without adverse reactions. He did not take Lisinopril for the past two days because he ran out of the medication and has not picked it up from the pharmacy He notes that he does not make healthy dietary choices; however, has been maintaining a low-sodium diet. He generally sleeps well. He does not exercise. He declines weight management or dietitian referral He uses a CPAP device for sleep Nonsmoker. Does not drink alcohol. No recreational drugs He notes he had colonoscopy about a year ago: benign polyp; f/u in 7 years. Will request colonoscopy results from his former PCP He states that he is vaccinated for shingles His last eye exam was several eyes ago He is followed by [facility] orthopedics [facility] Medical History High blood pressure High cholesterol Sleep apnea Surgical History History of dental surgery H/O left knee surgery History of cholecystectomy Family History Mother Early onset Alzheimer's dementia Ovarian cancer Father Lung cancer Emphysema lung Sister Stroke Social History Household Members: Spouse Housing: House Are you a primary physician primary care sports medicine to a significant other at home: No Do you presently have visiting nurse or other home services: No 75 years or older and lives alone: No Alcohol intake: former Patient Tobacco Use Status: Never used Tobacco e-Cigarette/Vaping Use: Never Used Special eliza needs: No service: No Current occupational status: employed Current occupation: sales Current occupational exposures/hazards: No Cognitive needs: No Hearing needs: No Vision needs: No (reading glasses) Questionnaire PHQ-9 Over the last 2 weeks, how often have you been bothered by any of the following problems? 1. Little interest or pleasure in doing things: not at all 2. Feeling down, depressed, or hopeless: not at all 3. Trouble falling or staying asleep, or sleeping too much: several days 4. Feeling tired or having little energy: several days 5. Poor appetite or overeating: not at all 6. Feeling bad about yourself - or that you are a failure or have let yourself or your family down: not at all 7. Trouble concentrating on things, such as reading the newspaper or watching television: not at all 8. Moving or speaking so slowly that other people could have noticed. Or the opposite - being so fidgety or restless that you have been moving around a lot more than usual: not at all 9. Thoughts that you would be better off or of hurting yourself in some way: not at all Total score: 2 Depression Screening Interpretation: Negative Depression Screening Done: Yes 46120 - PHQ-9 Billing: Yes Source: Developed by Drs. Nikko Sharma, Faby Lozada, Luis Carlos House and colleagues, with an educational jesus from [employer]. Thrive Questionnaire Date Thrive assessed: 10/18/23 I am a: Patient What is your living situation today?: I have a steady place to live Within the past 12 months, did the food you bought not last and you didn't have the money to get more?: Never true Within the past 12 months, did you worry whether your food would run out before you got money to buy more?: Never true Do you have trouble paying for medicines?: No Do you have trouble getting transportation to medical appointments?: No Do you have trouble paying your heating and electricity bill?: No Do you have trouble taking care of your child, family member or friend?: No Do you have trouble with day-to-day activities such as bathing, preparing meals, shopping, managing finances, etc.?: No Are you currently unemployed and looking for a job?: No Are you interested in more education?: No Please select the resources that you would like help with: None Currently or been in a relationship where the following occur: No concerns reported THRIVE Score: 0 AUDIT C Alcohol Use Questionnaire (AUDIT-C) 1. How often do you have a drink containing alcohol?: Never Total Score: 0 Score Reviewed/Action Taken: Yes KALA-7 AMB Questionnaire KALA-7 Date KALA - 7 assessed: 10/18/23 Feeling nervous, anxious, or on edge: 1 = Several days Not being able to stop or control worryin = Several days Worrying too much about different things: 1 = Several days Trouble relaxin = Not at all Being so restless that it is hard to sit still: 0 = Not at all Becoming easily annoyed or irritable: 1 = Several days Feeling afraid as if something awful might happen: 0 = Not at all Total KALA-7 score (0-4 normal; 5-9 mild; 10-14 moderate; 15-21 severe): 4 Source: Developed by Drs. Nikko Sharma, Faby Lozada, Luis Carlos House and colleagues, with an educational jesus from [email or web address]. KALA-7 Assessment Billing KALA-7 Assessment Tool: KALA-7 Assessment 04855 Review of Systems Const Details: Denies chills, Denies fatigue, Denies fever(s), Denies headache(s) and Denies weakness HEENT Denies change in vision, Denies dizziness, Denies headache(s), Denies hearing loss, Denies nasal congestion, Denies sinus pain, Denies sinus pressure and Denies sore throat Card Denies chest pain, Denies lightheadedness, Denies dyspnea and Denies other (palpitations) Resp Denies cough, Denies dyspnea and Denies wheezing GI Denies abdominal pain, Denies melena, Denies hematochezia, Denies change in bowel habits, Denies dyspepsia and Denies nausea Denies hematuria and Denies dysuria Musc Denies abnormal gait, Denies myalgias, Denies arthralgias, Denies numbness and Denies tingling Skin/Breast Denies rash, Denies unusual bruising and Denies wounds Neuro Denies abnormal gait, Denies dizziness, Denies headache(s), Denies memory loss, Denies numbness, Denies Sensory deficit (Neuro), Denies tingling and Denies weakness Psych Denies anxiety, Denies depression and Denies memory loss Endo Denies cold intolerance, Denies fatigue, Denies heat intolerance, Denies polydipsia and Denies polyuria Arias/Lymph Denies easy bleeding and Denies easy bruising Aller/Immun Denies wheezing Physical exam (Primary Care) Tobacco/Smoking Status: Tobacco use Status Tobacco use date assessed 07/26/23 10/18/23 08:00 Patient Tobacco Use Status Never used Tobacco 10/18/23 08:00 e-Cigarette/Vaping Use Never Used 10/18/23 08:00 Depression Screening Interpretation: Negative Currently or been in a relationship where the following occur: No concerns reported Const Other: General: no acute distress, well developed, alert and awake Nutritional Appearance: well nourished Orientation/consciousness: patient oriented x3 HENMT Head: Yes normocephalic and Yes atraumatic Ears: hearing grossly normal bilaterally and TM's normal bilaterally General nose exam: Normal external nose present and Normal nares present Mouth: Normal oral and palatal mucosa present and moist mucous membranes Teeth and gingiva: dentition normal Throat: Yes oropharynx normal Eyes Pupils: Equal, round and reactive pupils present and Pupil accommodation reflex normal EOM: EOMs intact bilaterally Neck Neck: Yes normal visual inspection, Yes no lymphadenopathy and Yes trachea midline Thyroid: Thyroid normal Carotids: no bruits Lymphatic: no lymphadenopathy noted Chest Chest palpation & inspection: normal inspection of the chest Resp Effort & Inspection: normal respiratory effort Auscultation: clear to auscultation bilaterally Cardio Rate: regular rate Rhythm: regular rhythm Heart sounds: S1 normal heart sound present, S2 normal heart sound present, no gallops, no murmurs and no rubs Bruits: no abdominal aortic bruits and no carotid bruits GI Palpation (GI): No Abdominal aortic bruit present, Soft to palpation, nontender, No hepatosplenomegaly present and No Rebound tenderness present Auscultation: normal bowel sounds General: Yes no CVA tenderness Back/Spine/Pelvis Back: no CVA tenderness Cervical Spine: cervical ROM normal and No Cervical spine tenderness Thoracic/Lumbar Spine: thoraco-lumbar ROM normal, No pain with thoraco-lumbar ROM, No thoracic spinal tenderness and No lumbar spinal tenderness Skin General: warm and dry. Normal skin color. Normal skin turgor Lesions: no lesions Rashes: no rashes Trauma: no lacerations or abrasions Wounds: no wounds Nails: normal Neuro General: patient oriented x3, gait normal and CN's II-XI intact bilaterally Cranial nerves: Yes Equal, round and reactive pupils present Cognition (Neuro): normal cognition Gait exam (Neuro): Normal gait present Motor exam (neuro): 5/5 motor strength present throughout Sensory Exam: No Sensory deficit (Neuro) Deep tendon reflexes (DTR's): Right patellar reflex intensity grade: 2+ and Left patellar reflex intensity grade: 2+ Extrem General: Yes normal to inspection, No edema and No calf tenderness Psych Appearance: grossly normal Affect: normal affect Attitude: cooperative Thought process: Normal thought process present Assessment and Plan Assessment & Plan (1) Normal physical examination, routine: Code(s): Z00.00 - Encounter for general adult medical examination without abnormal findings Plan: Mild physical restriction/limitation noted due to osteoarthritis of the right knee Continue current treatment regimen Healthy diet and routine exercise encouraged Follow-up in 3 months for hypertension and hyperlipidemia or sooner with symptoms or concerns Verbalized understanding and agreed with treatment plan (2) High blood pressure: Code(s): I10 - Essential (primary) hypertension Qualifiers: Hypertension type: primary hypertension Qualified Code(s): I10 - Essential (primary) hypertension Plan: Resting blood pressure is 150/80, above goal of less than 140/90 Medication compliance encouraged Advised to take lisinopril as prescribed Low-sodium diet encouraged Follow-up in 1 month Verbalized understanding and agreed with the treatment plan (3) High cholesterol: Code(s): E78.00 - Pure hypercholesterolemia, unspecified Plan: Recent lipid panel level is unremarkable except for low HDL, 36 Continue current treatment regimen Will recheck lipid panel levels in 3 months Verbalized understanding and agreed with the plan (4) Arthritis of right knee: Code(s): M17.11 - Unilateral primary osteoarthritis, right knee Plan: No acute symptoms Continue current treatment regimen Followed by [facility] [place]ics (5) Eye exam, routine: Code(s): Z01.00 - Encounter for examination of eyes and vision without abnormal findings Plan: He has not had an eye exam in several years Referred to [facility] ophthalmology for routine eye exam (6) Morbid obesity with BMI of 40.0-44.9, adult: Code(s): E66.01 - Morbid (severe) obesity due to excess calories; Z68.41 - Body mass index [BMI] 40.0-44.9, adult Plan: He currently weighs 294 lb, BMI is 42.3 Declines weight management or dietitian referral and notes he will improve his diet and start exercising Healthy diet and routine exercise encouraged Informed that he may notify his PCP if he changes his mind on weight management referral Follow-up with symptoms or concerns Verbalized understanding and agreed with the treatment plan Orders: Orders Lipid Panel 3 Months E78.00 - Pure hypercholesterolemia, unspecified Referrals Ophthalmology Referral Z01.00 - Encounter for examination of eyes and vision without abnormal findings Medications: Refilled simvastatin 40 mg PO DAILY 30 days 30 tabs 3RF lisinopril 20 mg PO DAILY 30 days 30 tabs 3RF Coding Level of Care Code Est Pt Level 4 (07361) Est Pt Prev Care 40-64y(85619) Diagnoses Normal physical examination, routine Z00.00 Primary hypertension I10 Hypertension type: primary hypertension High cholesterol E78.00 Arthritis of right knee M17.11 Eye exam, routine Z01.00 Morbid obesity with BMI of 40.0-44.9, adult E66.01; Z68.41 Additional Codes KALA-7 Assessment Billing - KALA-7 Assessment Tool: KALA-7 Assessment 80796 ([id number])
[2023-10-18 08:05] VITALS: BP 160/80; PULSE 66; RESP 16; TEMP 36.8; O2SAT 97; BMI 42.3
[2023-10-18 08:17] VITALS: BP 150/80
== END 2023-10-18 08:29 | disposition home or self-care (01) ==
PROVIDERS: PCP Nurse Practitioner Family; Visit Provider Nurse Practitioner Family
DX: Z00.00 Encounter for general adult medical examination without abnormal findings (principal); E66.01 Morbid (severe) obesity due to excess calories; Z68.41 Body mass index [BMI] 40.0-44.9, adult; I10 Essential (primary) hypertension; E78.00 Pure hypercholesterolemia, unspecified; M17.11 Unilateral primary osteoarthritis, right knee
CPT/HCPCS: 99396

== ENCOUNTER 2023-11-20 08:22 | Outpatient (AMB) | payer BC, SELFPAY ==
--- NOTE | 2023-11-20 08:25 | A.OFFPC_ITS ---
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 Allergies No Known Allergies Allergy (Verified 11/20/23 08:39) Medication List - Last Reconciled 11/20/23 by Tc Bingham CNP aspirin (Adult Aspirin Regimen) 81 mg PO DAILY celecoxib (Celebrex) 200 mg PO DAILY cholecalciferol (vitamin D3) 25 mcg PO DAILY 90 days elderberry fruit mg PO BEDTIME lisinopril 20 mg PO DAILY 30 days simvastatin 40 mg PO DAILY 30 days Tobacco use date assessed: 11/20/23 Fall risk assessment: No Falls in past year Last assessed Fall Risk: 11/20/23 Dental Screening Dental Screen Date: 11/20/23 Did you have a dental visit in the last 12 months?: Yes Did you have a dental problem in the last 6 months where you did not have access to dental care?: No Was dental information given to patient?: Patient has dentist HPI HPI Comments History of Present Illness Details 63-year-old male presents for hypertensi on and hyperlipidemia follow-up He admits to taking his medications as prescribed without adverse reactions He has been maintaining a low-sodium diet He is in the process of relocating to a new home and has been under significant stress as a result Forgot to get fasting lipid panel blood work done as planned before this visit [facility] Medical History High blood pressure High cholesterol Sleep apnea Surgical History History of dental surgery H/O left knee surgery History of cholecystectomy Family History Mother Early onset Alzheimer's dementia Ovarian cancer Father Lung cancer Emphysema lung Sister Stroke Social History Household Members: Spouse Housing: House Are you a primary intensive care medicine specialist to a significant other at home: No Do you presently have visiting nurse or other home services: No 75 years or older and lives alone: No Alcohol intake: former Patient Tobacco Use Status: Never used Tobacco e-Cigarette/Vaping Use: Never Used Special eliza needs: No service: No Current occupational status: employed Current occupation: sales Current occupational exposures/hazards: No Cognitive needs: No Hearing needs: No Vision needs: No (reading glasses) Questionnaire Thrive Questionnaire Date Thrive assessed: 10/18/23 KALA-7 AMB Questionnaire KALA-7 Date KALA - 7 assessed: 10/18/23 Source: Developed by Drs. Nikko Sharma, Faby Lozada, Luis Carlos House and colleagues, with an educational jesus from [employer]. Review of Systems Const Details: Const Denies chills, Denies fatigue, Denies fever(s), Denies headache(s) and Denies weakness ENT Denies dizziness and Denies headache(s) Card Denies chest pain, Denies lightheadedness, Denies dyspnea and Denies other (Palpitations) Resp Denies cough, Denies dyspnea, Denies wheezing and Denies other ( shortness of breath) GI Denies abdominal pain, Denies melena, Denies hematochezia, Denies change in bowel habits, Denies dyspepsia and Denies nausea Denies hematuria and Denies dysuria Musc Denies abnormal gait, Denies myalgias, Denies arthralgias, Denies numbness and Denies tingling Skin/Breast Denies rash, Denies unusual bruising and Denies wounds Neuro Denies abnormal gait, Denies dizziness, Denies headache(s), Denies memory loss, Denies numbness, Denies Sensory deficit (Neuro), Denies tingling and Denies weakness Endo Denies cold intolerance, Denies fatigue, Denies heat intolerance, Denies polydipsia and Denies polyuria Aller/Immun Denies wheezing Physical exam (Primary Care) Vital Signs: Last Vital Signs Temp 98.3 F 11/20/23 08:29 Pulse 51 11/20/23 08:29 Resp 16 11/20/23 08:29 BP 140/80 H 11/20/23 08:29 Pulse Ox 98 11/20/23 08:29 Oxygen Delivery Method Room Air 11/20/23 08:29 BMI result Body Mass Index 43.2 Tobacco/Smoking Status: Tobacco use Status Tobacco use date assessed 11/20/23 11/20/23 08:32 Patient Tobacco Use Status Never used Tobacco 11/20/23 08:28 e-Cigarette/Vaping Use Never Used 11/20/23 08:28 Thrive Assessment: Date of Thrive Assessment Date Thrive assessed 10/18/23 11/20/23 08:28 Const Other: General: no acute distress and well developed Nutritional Appearance: well nourished Orientation/consciousness: patient oriented x3 HENMT Head: Yes normocephalic and Yes atraumatic Eyes General: appearance normal, both eyes and all related structures Pupils: Equal, round and reactive pupils present EOM: EOMs intact bilaterally Resp Effort & Inspection: normal respiratory effort Auscultation: clear to auscultation bilaterally Cardio Rate: regular rate Rhythm: regular rhythm Heart sounds: S1 normal heart sound present, S2 normal heart sound present, no gallops, no murmurs and no rubs GI Palpation (GI): No Abdominal aortic bruit present, Soft to palpation, nontender, No hepatosplenomegaly present and No Rebound tenderness present Auscultation: normal bowel sounds General: Yes no CVA tenderness Back/Spine/Pelvis Back: no CVA tenderness Cervical Spine: cervical ROM normal and No Cervical spine tenderness Thoracic/Lumbar Spine: thoraco-lumbar ROM normal, No pain with thoraco-lumbar ROM, No thoracic spinal tenderness and No lumbar spinal tenderness Extrem General: Yes normal to inspection, No edema and No calf tenderness Skin General: warm and dry. Normal skin color. Normal skin turgor Neuro General: patient oriented x3, gait normal and no focal neuro deficit Cranial nerves: Yes Equal, round and reactive pupils present Cognition (Neuro): normal cognition Gait exam (Neuro): Normal gait present Sensory Exam: No Sensory deficit (Neuro) Psych Appearance: grossly normal Affect: normal affect Attitude: cooperative Thought process: Normal thought process present Coding Level of Care Code Est Pt Level 3 (51380) Diagnoses Primary hypertension I10 Hypertension type: primary hypertension High cholesterol E78.00 Assessment & Plan Assessment & Plan (1) High blood pressure: Code(s): I10 - Essential (primary) hypertension Category: Medical Qualifiers: Hypertension type: primary hypertension Qualified Code(s): I10 - Essential (primary) hypertension Plan: Resting blood pressure is 140/80, slightly above goal of less than 140/90 He has recently been under significant amount of stress related to moving to a new home; this may increase his blood pressure Continue current treatment regimen Low-sodium diet, routine exercise, deep breathing/relaxation techniques encouraged Follow-up in 2 months or sooner with symptoms or concerns Verbalized understanding and agreed with the treatment plan (2) High cholesterol: Code(s): E78.00 - Pure hypercholesterolemia, unspecified Category: Medical Plan: He forget to have lipid panel blood work done before this visit but would do so after his visit Continue current treatment regimen Will review lipid panel levels and make changes as needed Follow-up in 3 months Verbalized understanding and agreed with the plan
[2023-11-20 08:29] VITALS: BP 140/80; PULSE 51; RESP 16; TEMP 36.8; O2SAT 98; BMI 43.2
== END 2023-11-20 08:46 | disposition home or self-care (01) ==
PROVIDERS: PCP Nurse Practitioner Family; Visit Provider Nurse Practitioner Family
DX: I10 Essential (primary) hypertension (principal); E78.00 Pure hypercholesterolemia, unspecified

== ENCOUNTER → 2023-11-20 08:22 | Outpatient (BNVA) | payer BC, SELFPAY | PROVIDERS: PCP Nurse Practitioner Family; Visit Provider Nurse Practitioner Family ==

== ENCOUNTER 2023-11-20 08:50 | Outpatient (REF) | payer BC, SELFPAY ==
[2023-11-20 12:18] LABS: Cholesterol 181 mg/dL (<200); HDL Cholesterol 37 mg/dL (>40); LDL Cholesterol Calculated 116 mg/dL (<100); Triglycerides 140 mg/dL (<150)
== END 2023-11-20 08:51 | disposition home or self-care (01) ==
LOC: HO.WFDLDS 08:50
PROVIDERS: Visit Provider Nurse Practitioner Family
DX: E78.00 Pure hypercholesterolemia, unspecified (principal)
CPT/HCPCS: 36415; 80061

== ENCOUNTER 2024-01-23 08:22 | Outpatient (AMB) | payer BC, SELFPAY ==
--- NOTE | 2024-01-23 08:27 | MHC.PC.OV ---
Vital Signs 01/23/24 08:30 01/23/24 08:53 Height 5 ft 10 in Weight 311 lb BMI 44.6 BP 140/64 H 132/68 Blood Pressure Location Lt brachial Lt brachial Position Sitting Sitting Respiration 16 Pulse 60 Pulse Source Pulse Oximeter Temp 98.2 F Temp Source Temporal Artery Scan Pulse Oximetry (%) 95 Oxygen Delivery Method Room Air Intake Visit Reasons: 2 mos HTN, HLD Intake Note: patient here for 2 month follow up on HTN and HLD Taker Away Required: No Allergies No Known Allergies Allergy (Verified 01/23/24 08:47) Medication List - Last Reconciled 01/23/24 by Tc Bingham CNP aspirin (Adult Aspirin Regimen) 81 mg PO DAILY celecoxib (Celebrex) 200 mg PO DAILY cholecalciferol (vitamin D3) 25 mcg PO DAILY 90 days elderberry fruit mg PO BEDTIME lisinopril 20 mg PO DAILY 30 days simvastatin 40 mg PO DAILY 30 days Tobacco use date assessed: 01/23/24 Fall risk assessment: No Falls in past year Last assessed Fall Risk: 01/23/24 Dental Screening Dental Screen Date: 01/23/24 Did you have a dental visit in the last 12 months?: Yes Did you have a dental problem in the last 6 months where you did not have access to dental care?: No Was dental information given to patient?: Patient has dentist HPI HPI Comments History of Present Illness Details The patient is a 63-year-old male presenting with follow-up for essential hypertension and hyperlipidemia. The patient reports concern regarding weight management, expressing difficulty maintaining a healthy diet and recent weight gain of 10 pounds over the past two months. Despite being aware of dietary recommendations, such as low carbohydrate and low sodium diets, he admits to not adhering to these guidelines and is not actively managing his intake of high-sodium or fatty foods. The patient declined a weight management referral at the previous visit but is now open to reconsidering it to better manage his weight. Blood pressure readings remain stable with current medication, measuring at 132/78 mmHg. Lipid panel results show an increase in triglycerides from 116 mg/dL in July to 140 mg/dL currently and an increase in LDL cholesterol from 94 mg/dL in July to 116 mg/dL. The HDL level is slightly improved from 36 mg/dL to 37 mg/dL. He is scheduled for a right knee replacement in February due to osteoarthritis. The patient continues to take simvastatin 40 mg daily for hyperlipidemia. Results - Labs: Triglycerides increased to 140 mg/dL; LDL increased to 116 mg/dL; Total cholesterol is 181 mg/dL; HDL improved to 37 mg/dL. [facility] Medical History High blood pressure High cholesterol Sleep apnea Surgical History History of dental surgery H/O left knee surgery History of cholecystectomy Family History Mother Early onset Alzheimer's dementia Ovarian cancer Father Lung cancer Emphysema lung Sister Stroke Social History Household Members: Spouse Housing: House Are you a primary critical care clinical nurse specialist to a significant other at home: No Do you presently have visiting nurse or other home services: No 75 years or older and lives alone: No Alcohol intake: former Patient Tobacco Use Status: Never used Tobacco e-Cigarette/Vaping Use: Never Used Special eliza needs: No service: No Current occupational status: employed Current occupation: sales Current occupational exposures/hazards: No Cognitive needs: No Hearing needs: No Vision needs: No (reading glasses) Questionnaire PHQ-9 Over the last 2 weeks, how often have you been bothered by any of the following problems? 1. Little interest or pleasure in doing things: not at all 2. Feeling down, depressed, or hopeless: not at all 3. Trouble falling or staying asleep, or sleeping too much: several days 4. Feeling tired or having little energy: several days 5. Poor appetite or overeating: several days 6. Feeling bad about yourself - or that you are a failure or have let yourself or your family down: not at all 7. Trouble concentrating on things, such as reading the newspaper or watching television: not at all 8. Moving or speaking so slowly that other people could have noticed. Or the opposite - being so fidgety or restless that you have been moving around a lot more than usual: not at all 9. Thoughts that you would be better off or of hurting yourself in some way: not at all Total score: 3 Depression Screening Interpretation: Negative Depression Screening Done: Yes Source: Developed by Drs. Nikko Sharma, Faby Lozada, Luis Carlos House and colleagues, with an educational jesus from [employer]. Thrive Questionnaire Date Thrive assessed: 01/23/24 I am a: Patient What is your living situation today?: I have a steady place to live Within the past 12 months, did the food you bought not last and you didn't have the money to get more?: Never true Within the past 12 months, did you worry whether your food would run out before you got money to buy more?: Never true Do you have trouble paying for medicines?: No Do you have trouble getting transportation to medical appointments?: No Do you have trouble paying your heating and electricity bill?: No Do you have trouble taking care of your child, family member or friend?: No Do you have trouble with day-to-day activities such as bathing, preparing meals, shopping, managing finances, etc.?: No Are you currently unemployed and looking for a job?: No Are you interested in more education?: No Please select the resources that you would like help with: None Currently or been in a relationship where the following occur: No concerns reported THRIVE Score: 0 AUDIT C Alcohol Use Questionnaire (AUDIT-C) 1. How often do you have a drink containing alcohol?: Never 3. How often do you have six or more drinks on one occasion?: Never Total Score: 0 KALA-7 AMB Questionnaire KALA-7 Date KALA - 7 assessed: 01/23/24 Feeling nervous, anxious, or on edge: 0 = Not at all Not being able to stop or control worryin = Not at all Worrying too much about different things: 0 = Not at all Trouble relaxin = Not at all Being so restless that it is hard to sit still: 0 = Not at all Becoming easily annoyed or irritable: 1 = Several days Feeling afraid as if something awful might happen: 0 = Not at all Total KALA-7 score (0-4 normal; 5-9 mild; 10-14 moderate; 15-21 severe): 1 Source: Developed by Faby Galvan Kurt Kroenke and colleagues, with an educational jesus from [employer]. KALA-7 Assessment Billing KALA-7 Assessment Tool: KALA-7 Assessment 38630 Review of Systems Const Details: Const Denies chills, Denies fatigue, Denies fever(s), Denies headache(s) and Denies weakness ENT Denies dizziness and Denies headache(s) Card Denies chest pain, Denies lightheadedness, Denies dyspnea and Denies other (Palpitations) Resp Denies cough, Denies dyspnea, Denies wheezing and Denies other ( shortness of breath) GI Denies abdominal pain, Denies melena, Denies hematochezia, Denies change in bowel habits, Denies dyspepsia and Denies nausea Denies hematuria and Denies dysuria Musc Denies abnormal gait, Denies myalgias, Denies arthralgias, Denies numbness and Denies tingling Skin/Breast Denies rash, Denies unusual bruising and Denies wounds Neuro Denies abnormal gait, Denies dizziness, Denies headache(s), Denies memory loss, Denies numbness, Denies Sensory deficit (Neuro), Denies tingling and Denies weakness Psych Denies anxiety, Denies depression, Denies memory loss Endo Denies cold intolerance, Denies fatigue, Denies heat intolerance, Denies polydipsia and Denies polyuria Aller/Immun Denies wheezing Physical exam (Primary Care) Vital Signs: Last Vital Signs Temp 98.2 F 01/23/24 08:30 Pulse 60 01/23/24 08:30 Resp 16 01/23/24 08:30 BP 140/64 H 01/23/24 08:30 Pulse Ox 95 01/23/24 08:30 Oxygen Delivery Method Room Air 01/23/24 08:30 BMI result Body Mass Index 44.6 Tobacco/Smoking Status: Tobacco use Status Tobacco use date assessed 01/23/24 01/23/24 08:36 Patient Tobacco Use Status Never used Tobacco 01/23/24 08:29 e-Cigarette/Vaping Use Never Used 01/23/24 08:29 PHQ-9: PHQ-9 Score PHQ-9: Total score 3 01/23/24 08:29 Depression Screening Interpretation: Negative Thrive Assessment: Date of Thrive Assessment Date Thrive assessed 01/23/24 01/23/24 08:36 Currently or been in a relationship where the following occur: No concerns reported Const Other: General: no acute distress and well developed Nutritional Appearance: well nourished Orientation/consciousness: patient oriented x3 HENMT Head: Yes normocephalic and Yes atraumatic Eyes General: appearance normal, both eyes and all related structures Pupils: Equal, round and reactive pupils present EOM: EOMs intact bilaterally Resp Effort & Inspection: normal respiratory effort Auscultation: clear to auscultation bilaterally Cardio Rate: regular rate Rhythm: regular rhythm Heart sounds: S1 normal heart sound present, S2 normal heart sound present, no gallops, no murmurs and no rubs GI Palpation (GI): No Abdominal aortic bruit present, Soft to palpation, nontender, No hepatosplenomegaly present and No Rebound tenderness present Auscultation: normal bowel sounds General: Yes no CVA tenderness Back/Spine/Pelvis Back: no CVA tenderness Cervical Spine: cervical ROM normal and No Cervical spine tenderness Thoracic/Lumbar Spine: thoraco-lumbar ROM normal, No pain with thoraco-lumbar ROM, No thoracic spinal tenderness and No lumbar spinal tenderness Extrem General: Yes normal to inspection, No edema and No calf tenderness Skin General: warm and dry. Normal skin color. Normal skin turgor Neuro General: patient oriented x3, gait normal and no focal neuro deficit Cranial nerves: Yes Equal, round and reactive pupils present Cognition (Neuro): normal cognition Gait exam (Neuro): Normal gait present Sensory Exam: No Sensory deficit (Neuro) Psych Appearance: grossly normal Affect: normal affect Attitude: cooperative Thought process: Normal thought process present Coding Level of Care Code Est Pt Level 3 (70915) Diagnoses Primary hypertension I10 Hypertension type: primary hypertension High cholesterol E78.00 Morbid obesity with BMI of 40.0-44.9, adult E66.01; Z68.41 Additional Codes KALA-7 Assessment Billing - KALA-7 Assessment Tool: KALA-7 Assessment 47847 ([id number]) Assessment & Plan Assessment & Plan (1) High blood pressure: Code(s): I10 - Essential (primary) hypertension Category: Medical Qualifiers: Hypertension type: primary hypertension Qualified Code(s): I10 - Essential (primary) hypertension Plan: Continue current antihypertensive medication with periodic monitoring of blood pressure. Low sodium diet encouraged. (2) High cholesterol: Code(s): E78.00 - Pure hypercholesterolemia, unspecified Category: Medical Plan: Advised to limit foods that are high in saturated fats and avoid foods that are high in trans fat. Routine exercise encouraged. (3) Morbid obesity with BMI of 40.0-44.9, adult: Code(s): E66.01 - Morbid (severe) obesity due to excess calories; Z68.41 - Body mass index [BMI] 40.0-44.9, adult Category: Medical Plan: He has been making unhealthy dietary choices and has gained 10 lb in the past 2 months. Healthy diet and routine exercise encouraged. Referred to [facility] [place] [facility]. Plan During the visit, we discussed the patient's conditions of essential hypertension and hyperlipidemia, emphasizing the importance of dietary management to control lipid levels. The risks of high cholesterol, including cardiovascular disease, were highlighted, with a dietary plan recommended to limit intake of saturated fats and sodium. The treatment with simvastatin was affirmed, noting its effectiveness. We also reviewed the patient's weight management and reconsidered a referral to a weight management program, highlighting its potential impact on overall health, including blood pressure and cholesterol levels. Instructions were given for fasting before the next lipid panel. We also discussed the upcoming knee replacement surgery, providing reassurance of pre-operative preparation via [facility]. Follow-up plans were established to include monitoring of cholesterol levels and weight management effectiveness. Orders: Orders Lipid Panel 3 Months E78.00 - Pure hypercholesterolemia, unspecified Referrals Medical Weight Management Referral E66.01 - Morbid (severe) obesity due to excess calories, Z68.41 - Body mass index [BMI] 40.0-44.9, adult Patient Instructions: - Adhere to a low-carbohydrate, low-sodium diet and limit saturated fats. - Consider enrolling in a weight management program. - Fast for 10-12 hours before the lipid panel three months from now. - Continue taking simvastatin 40 mg daily. - Prepare for upcoming right knee replacement surgery in February. - Return in 3 months for follow-up to monitor blood pressure and cholesterol levels. - Report any new symptoms or concerns prior to the knee surgery. Patient was informed and verbally consented to the use of an ambient scribe for clinic note documentation during this visit.
[2024-01-23 08:30] VITALS: BP 140/64; PULSE 60; RESP 16; TEMP 36.8; O2SAT 95; BMI 44.6
[2024-01-23 08:53] VITALS: BP 132/68
== END 2024-01-23 09:01 | disposition home or self-care (01) ==
PROVIDERS: PCP Nurse Practitioner Family; Visit Provider Nurse Practitioner Family
DX: I10 Essential (primary) hypertension (principal); E78.00 Pure hypercholesterolemia, unspecified; E66.01 Morbid (severe) obesity due to excess calories; Z68.41 Body mass index [BMI] 40.0-44.9, adult

== ENCOUNTER → 2024-01-23 08:22 | Outpatient (BNVA) | payer BC, SELFPAY | PROVIDERS: PCP Nurse Practitioner Family; Visit Provider Nurse Practitioner Family | DX: I10 Essential (primary) hypertension (principal); E78.00 Pure hypercholesterolemia, unspecified; E66.01 Morbid (severe) obesity due to excess calories; Z68.41 Body mass index [BMI] 40.0-44.9, adult | CPT/HCPCS: 96127 ==

== ENCOUNTER 2024-04-29 09:06 | Outpatient (REF) | payer BC, SELFPAY ==
[2024-04-29 11:39] LABS: Cholesterol 152 mg/dL (<200); HDL Cholesterol 36 mg/dL (>40); LDL Cholesterol Calculated 90 mg/dL (<100); Triglycerides 133 mg/dL (<150)
== END 2024-04-29 09:07 | disposition home or self-care (01) ==
LOC: HO.WFDLDS 09:06
PROVIDERS: Visit Provider Nurse Practitioner Family
DX: E78.00 Pure hypercholesterolemia, unspecified (principal)
CPT/HCPCS: 36415; 80061

== ENCOUNTER 2024-05-05 15:54 | Outpatient (AMB) | payer BC, SELFPAY ==
--- NOTE | 2024-05-05 15:56 | A.OFFPC_ITS ---
Vital Signs 05/05/24 15:59 05/05/24 16:20 Height 5 ft 10 in Weight 297 lb 6 oz BMI 42.7 BP 153/69 H 120/60 Blood Pressure Location Rt brachial Lt brachial Position Sitting Sitting Respiration 16 Pulse 67 Pulse Source Pulse Oximeter Temp 98.2 F Temp Source Oral Pulse Oximetry (%) 96 Oxygen Delivery Method Room Air Intake Visit Reasons: 3 mos HTN, HLD Intake Note: patient here for 3 month follow up for HTN and HLD Senior Property Accountant Required: No Allergies No Known Allergies Allergy (Verified 05/05/24 16:16) Medication List - Last Reconciled 05/05/24 by Tc Bingham CNP aspirin (Adult Aspirin Regimen) 81 mg PO DAILY celecoxib (Celebrex) 200 mg PO DAILY cholecalciferol (vitamin D3) 25 mcg PO DAILY 90 days elderberry fruit mg PO BEDTIME lisinopril 20 mg PO DAILY 30 days simvastatin 40 mg PO DAILY 30 days Tobacco use date assessed: 05/05/24 Fall risk assessment: No Falls in past year Last assessed Fall Risk: 05/05/24 Dental Screening Dental Screen Date: 05/05/24 Did you have a dental visit in the last 12 months?: Yes Did you have a dental problem in the last 6 months where you did not have access to dental care?: No Was dental information given to patient?: Patient has dentist HPI HPI Comments History of Present Illness Details 63-year-old male presents for hypertensi on and hyperlipidemia follow- up. He admits to taking his medications as prescribed without adverse reactions. He has been making healthy lifestyle changes and has lost 14 lb since his last visit. Reports tickling sensation to both ears that has been ongoing for few months. No acute symptoms at this time. [facility] Medical History High blood pressure High cholesterol Sleep apnea Surgical History History of dental surgery H/O left knee surgery History of cholecystectomy Family History Mother Early onset Alzheimer's dementia Ovarian cancer Father Lung cancer Emphysema lung Sister Stroke Social History Household Members: Spouse Housing: House Are you a primary healthcare administration intern to a significant other at home: No Do you presently have visiting nurse or other home services: No 75 years or older and lives alone: No Alcohol intake: former Patient Tobacco Use Status: Never used Tobacco e-Cigarette/Vaping Use: Never Used Special eliza needs: No service: No Current occupational status: employed Current occupation: sales Current occupational exposures/hazards: No Cognitive needs: No Hearing needs: No Vision needs: No (reading glasses) Questionnaire PHQ-9 Over the last 2 weeks, how often have you been bothered by any of the following problems? 1. Little interest or pleasure in doing things: not at all 2. Feeling down, depressed, or hopeless: not at all 3. Trouble falling or staying asleep, or sleeping too much: not at all 4. Feeling tired or having little energy: several days 5. Poor appetite or overeating: not at all 6. Feeling bad about yourself - or that you are a failure or have let yourself or your family down: not at all 7. Trouble concentrating on things, such as reading the newspaper or watching television: not at all 8. Moving or speaking so slowly that other people could have noticed. Or the opposite - being so fidgety or restless that you have been moving around a lot more than usual: not at all 9. Thoughts that you would be better off or of hurting yourself in some way: not at all Total score: 1 Depression Screening Interpretation: Negative Depression Screening Done: Yes Source: Developed by Drs. Nikko Sharma, Faby Lozada, Luis Carlos House and colleagues, with an educational jesus from [employer]. Thrive Questionnaire Date Thrive assessed: 01/23/24 I am a: Patient What is your living situation today?: I have a steady place to live Within the past 12 months, did the food you bought not last and you didn't have the money to get more?: Never true Within the past 12 months, did you worry whether your food would run out before you got money to buy more?: Never true Do you have trouble paying for medicines?: No Do you have trouble getting transportation to medical appointments?: No Do you have trouble paying your heating and electricity bill?: No Do you have trouble taking care of your child, family member or friend?: I choose not to answer this question Do you have trouble with day-to-day activities such as bathing, preparing meals, shopping, managing finances, etc.?: No Are you currently unemployed and looking for a job?: No Are you interested in more education?: No Please select the resources that you would like help with: None Currently or been in a relationship where the following occur: No concerns reported THRIVE Score: 0 AUDIT C Alcohol Use Questionnaire (AUDIT-C) 1. How often do you have a drink containing alcohol?: Never 2. How many drinks containing alcohol do you have on a typical day when you are drinking?: 3 or 4 3. How often do you have six or more drinks on one occasion?: Never Total Score: 1 KALA-7 AMB Questionnaire KALA-7 Date KALA - 7 assessed: 01/23/24 Feeling nervous, anxious, or on edge: 0 = Not at all Not being able to stop or control worryin = Not at all Worrying too much about different things: 0 = Not at all Trouble relaxin = Not at all Being so restless that it is hard to sit still: 0 = Not at all Becoming easily annoyed or irritable: 1 = Several days Feeling afraid as if something awful might happen: 0 = Not at all Total KALA-7 score (0-4 normal; 5-9 mild; 10-14 moderate; 15-21 severe): 1 Source: Developed by Drs. Nikko Sharma, Faby Lozada, Luis Carlos House and colleagues, with an educational jesus from [employer]. Review of Systems Const Details: Const Denies chills, Denies fatigue, Denies fever(s), Denies headache(s) and Denies weakness ENT Reports as per HPI Card Denies chest pain, Denies lightheadedness, Denies dyspnea and Denies other (Palpitations) Resp Denies cough, Denies dyspnea, Denies wheezing and Denies other ( shortness of breath) GI Denies abdominal pain, Denies melena, Denies hematochezia, Denies change in bowel habits, Denies dyspepsia and Denies nausea Denies hematuria and Denies dysuria Musc Denies abnormal gait, Denies myalgias, Denies arthralgias, Denies numbness and Denies tingling Skin/Breast Denies rash, Denies unusual bruising and Denies wounds Neuro Denies abnormal gait, Denies dizziness, Denies headache(s), Denies memory loss, Denies numbness, Denies Sensory deficit (Neuro), Denies tingling and Denies weakness Psych Denies anxiety, Denies depression, Denies memory loss Endo Denies cold intolerance, Denies fatigue, Denies heat intolerance, Denies polydipsia and Denies polyuria Aller/Immun Denies wheezing Physical exam (Primary Care) Vital Signs: Last Vital Signs Temp 98.2 F 05/05/24 15:59 Pulse 67 05/05/24 15:59 Resp 16 05/05/24 15:59 BP 153/69 H 05/05/24 15:59 Pulse Ox 96 05/05/24 15:59 Oxygen Delivery Method Room Air 05/05/24 15:59 BMI result Body Mass Index 42.7 Tobacco/Smoking Status: Tobacco use Status Tobacco use date assessed 05/05/24 05/05/24 16:02 Patient Tobacco Use Status Never used Tobacco 05/05/24 16:02 e-Cigarette/Vaping Use Never Used 05/05/24 16:02 PHQ-9: PHQ-9 Score PHQ-9: Total score 1 05/05/24 16:02 Depression Screening Interpretation: Negative Thrive Assessment: Date of Thrive Assessment Date Thrive assessed 01/23/24 05/05/24 16:02 Currently or been in a relationship where the following occur: No concerns reported Const Other: General: no acute distress and well developed Nutritional Appearance: well nourished Orientation/consciousness: patient oriented x3 HENMT Head is normocephalic Cerumen impaction to the right ear proximal to the TM, ear canal and TM are normal Left ear canal and TM are normal Nasal turbinates and oropharynx are pink and moist Sinuses are nontender with palpation No auricular or cervical lymphadenopathy Eyes General: appearance normal, both eyes and all related structures Pupils: Equal, round and reactive pupils present EOM: EOMs intact bilaterally Resp Effort & Inspection: normal respiratory effort Auscultation: clear to auscultation bilaterally Cardio Rate: regular rate Rhythm: regular rhythm Heart sounds: S1 normal heart sound present, S2 normal heart sound present, no gallops, no murmurs and no rubs GI Palpation (GI): No Abdominal aortic bruit present, Soft to palpation, nontender, No hepatosplenomegaly present and No Rebound tenderness present Auscultation: normal bowel sounds General: Yes no CVA tenderness Back/Spine/Pelvis Back: no CVA tenderness Cervical Spine: cervical ROM normal and No Cervical spine tenderness Thoracic/Lumbar Spine: thoraco-lumbar ROM normal, No pain with thoraco-lumbar ROM, No thoracic spinal tenderness and No lumbar spinal tenderness Extrem General: Yes normal to inspection, No edema and No calf tenderness Skin General: warm and dry. Normal skin color. Normal skin turgor Neuro General: patient oriented x3, gait normal and no focal neuro deficit Cranial nerves: Yes Equal, round and reactive pupils present Cognition (Neuro): normal cognition Gait exam (Neuro): Normal gait present Sensory Exam: No Sensory deficit (Neuro) Psych Appearance: grossly normal Affect: normal affect Attitude: cooperative Thought process: Normal thought process present Coding Level of Care Code Est Pt Level 4 (99780) Diagnoses Primary hypertension I10 Hypertension type: primary hypertension High cholesterol E78.00 Impacted cerumen of right ear H61.21 Assessment & Plan Assessment & Plan (1) High blood pressure: Code(s): I10 - Essential (primary) hypertension Category: Medical Qualifiers: Hypertension type: primary hypertension Qualified Code(s): I10 - Essential (primary) hypertension Plan: Resting blood pressure is 120/60, within goal of less than 140/90. Continue current treatment regimen. Follow-up in 3 months or sooner with symptoms or concerns. Verbalized understanding and agreed with treatment plan. (2) High cholesterol: Code(s): E78.00 - Pure hypercholesterolemia, unspecified Category: Medical Plan: Recent lipid panel levels are normal except for slightly low HDL. Continue current treatment regimen. Will recheck lipid panel levels in 3 months. Performed fasting blood work before next visit. Verbalized understanding and agreed with treatment plan. (3) Impacted cerumen of right ear: Code(s): H61.21 - Impacted cerumen, right ear Category: Medical Plan: Cerumen impaction to the right ear proximal to the TM, ear canal and TM are normal. Left ear canal and TM are normal. Small amount of cerumen removed from the right ear with irrigation. Follow-up as needed. Orders: Orders Lipid Panel 3 Months E78.00 - Pure hypercholesterolemia, unspecified
[2024-05-05 15:59] VITALS: BP 153/69; PULSE 67; RESP 16; TEMP 36.8; O2SAT 96; BMI 42.7
[2024-05-05 16:20] VITALS: BP 120/60
== END 2024-05-05 16:37 | disposition home or self-care (01) ==
LOC: HO.HMCFM 15:55
PROVIDERS: PCP Nurse Practitioner Family; Visit Provider Nurse Practitioner Family
DX: I10 Essential (primary) hypertension (principal); E78.00 Pure hypercholesterolemia, unspecified; H61.21 Impacted cerumen, right ear

== ENCOUNTER 2024-07-29 09:48 | Outpatient (REF) | payer BC, SELFPAY ==
[2024-07-29 11:59] LABS: Cholesterol 133 mg/dL (<200); HDL Cholesterol 36 mg/dL (>40); LDL Cholesterol Calculated 80 mg/dL (<100); Triglycerides 85 mg/dL (<150)
== END 2024-07-29 09:49 | disposition home or self-care (01) ==
LOC: HO.WFDLDS 09:48
PROVIDERS: Visit Provider Nurse Practitioner Family
DX: E78.00 Pure hypercholesterolemia, unspecified (principal)
CPT/HCPCS: 36415; 80061

== ENCOUNTER 2024-09-01 15:21 | Outpatient (AMB) | payer BC, SELFPAY ==
--- NOTE | 2024-09-01 15:24 | MHC.PC.OV ---
Vital Signs 09/01/24 15:30 09/01/24 16:04 Height 5 ft 10 in Weight 305 lb 2 oz BMI 43.8 BP 151/69 H 134/70 Blood Pressure Location Rt brachial Rt brachial Position Sitting Sitting Respiration 16 Pulse 61 Pulse Source Pulse Oximeter Temp 98.3 F Temp Source Oral Pulse Oximetry (%) 96 Oxygen Delivery Method Room Air Intake Visit Reasons: 3 mos HTN, HLD Intake Note: patient here for 3 month follow up on HTN and HLD Coding Technician Required: No Allergies No Known Allergies Allergy (Verified 09/01/24 15:58) Medication List - Last Reconciled 09/01/24 by Tc Bingham CNP aspirin (Adult Aspirin Regimen) 81 mg PO DAILY celecoxib (Celebrex) 200 mg PO DAILY cholecalciferol (vitamin D3) 25 mcg PO DAILY 90 days elderberry fruit mg PO BEDTIME lisinopril 20 mg PO DAILY 30 days simvastatin 40 mg PO DAILY 30 days Tobacco use date assessed: 09/01/24 Fall risk assessment: No Falls in past year Last assessed Fall Risk: 09/01/24 Dental Screening Dental Screen Date: 09/01/24 Did you have a dental visit in the last 12 months?: Yes Did you have a dental problem in the last 6 months where you did not have access to dental care?: No Was dental information given to patient?: Patient has dentist HPI HPI Comments History of Present Illness Details 64-year-old male presents for hypertension and hyperlipidemia follow-up. He admits to taking his medications as prescribed without adverse reactions. He notes he has been making healthy lifestyle changes. However, he has not been able to lose weight. He wants a referral to a linen room houseperson. He offers no complaints and denies acute symptoms at this time. [facility] Medical History High blood pressure High cholesterol Sleep apnea Surgical History History of dental surgery H/O left knee surgery History of cholecystectomy Family History Mother Early onset Alzheimer's dementia Ovarian cancer Father Lung cancer Emphysema lung Sister Stroke Social History Household Members: Spouse Housing: House Are you a primary career services officer to a significant other at home: No Do you presently have visiting nurse or other home services: No 75 years or older and lives alone: No Alcohol intake: former Patient Tobacco Use Status: Never used Tobacco e-Cigarette/Vaping Use: Never Used Second Hand Smoke Exposure: No Special eliza needs: No service: No Current occupational status: employed Current occupation: sales Current occupational exposures/hazards: No Cognitive needs: No Hearing needs: No Vision needs: No (reading glasses) Questionnaire Thrive Questionnaire Date Thrive assessed: 04/28/24 I am a: Patient What is your living situation today?: I have a steady place to live Within the past 12 months, did the food you bought not last and you didn't have the money to get more?: Never true Within the past 12 months, did you worry whether your food would run out before you got money to buy more?: Never true Do you have trouble paying for medicines?: No Do you have trouble getting transportation to medical appointments?: No Do you have trouble paying your heating and electricity bill?: No Do you have trouble taking care of your child, family member or friend?: I choose not to answer this question Do you have trouble with day-to-day activities such as bathing, preparing meals, shopping, managing finances, etc.?: No Are you currently unemployed and looking for a job?: No Are you interested in more education?: No Please select the resources that you would like help with: None Currently or been in a relationship where the following occur: No concerns reported THRIVE Score: 0 KALA-7 AMB Questionnaire KALA-7 Date KALA - 7 assessed: 01/23/24 Source: Developed by Drs. Nikko Sharma, Faby Lozada, Luis Carlos House and colleagues, with an educational jesus from [employer]. Review of Systems Const Details: Const Denies chills, Denies fatigue, Denies fever(s), Denies headache(s) and Denies weakness ENT Denies dizziness and Denies headache(s) Card Denies chest pain, Denies lightheadedness, Denies dyspnea and Denies other (Palpitations) Resp Denies cough, Denies dyspnea, Denies wheezing and Denies other ( shortness of breath) GI Denies abdominal pain, Denies melena, Denies hematochezia, Denies change in bowel habits, Denies dyspepsia and Denies nausea Denies hematuria and Denies dysuria Musc Denies abnormal gait, Denies myalgias, Denies arthralgias, Denies numbness and Denies tingling Skin/Breast Denies rash, Denies unusual bruising and Denies wounds Neuro Denies abnormal gait, Denies dizziness, Denies headache(s), Denies memory loss, Denies numbness, Denies Sensory deficit (Neuro), Denies tingling and Denies weakness Psych Denies anxiety, Denies depression, Denies memory loss Endo Denies cold intolerance, Denies fatigue, Denies heat intolerance, Denies polydipsia and Denies polyuria Aller/Immun Denies wheezing Physical exam (Primary Care) Vital Signs: Last Vital Signs Temp 98.3 F 09/01/24 15:30 Pulse 61 09/01/24 15:30 Resp 16 09/01/24 15:30 BP 151/69 H 09/01/24 15:30 Pulse Ox 96 09/01/24 15:30 Oxygen Delivery Method Room Air 09/01/24 15:30 BMI result Body Mass Index 43.8 Tobacco/Smoking Status: Tobacco use Status Tobacco use date assessed 09/01/24 09/01/24 15:34 Patient Tobacco Use Status Never used Tobacco 09/01/24 15:25 e-Cigarette/Vaping Use Never Used 09/01/24 15:25 Thrive Assessment: Date of Thrive Assessment Date Thrive assessed 04/28/24 09/01/24 15:25 Currently or been in a relationship where the following occur: No concerns reported Const Other: General: no acute distress and well developed Nutritional Appearance: well nourished Orientation/consciousness: patient oriented x3 HENMT Head: Yes normocephalic and Yes atraumatic Eyes General: appearance normal, both eyes and all related structures Pupils: Equal, round and reactive pupils present EOM: EOMs intact bilaterally Resp Effort & Inspection: normal respiratory effort Auscultation: clear to auscultation bilaterally Cardio Rate: regular rate Rhythm: regular rhythm Heart sounds: S1 normal heart sound present, S2 normal heart sound present, no gallops, no murmurs and no rubs GI Palpation (GI): No Abdominal aortic bruit present, Soft to palpation, nontender, No hepatosplenomegaly present and No Rebound tenderness present Auscultation: normal bowel sounds General: Yes no CVA tenderness Back/Spine/Pelvis Back: no CVA tenderness Cervical Spine: cervical ROM normal and No Cervical spine tenderness Thoracic/Lumbar Spine: thoraco-lumbar ROM normal, No pain with thoraco-lumbar ROM, No thoracic spinal tenderness and No lumbar spinal tenderness Extrem General: Yes normal to inspection, No edema and No calf tenderness Skin General: warm and dry. Normal skin color. Normal skin turgor Neuro General: patient oriented x3, gait normal and no focal neuro deficit Cranial nerves: Yes Equal, round and reactive pupils present Cognition (Neuro): normal cognition Gait exam (Neuro): Normal gait present Sensory Exam: No Sensory deficit (Neuro) Psych Appearance: grossly normal Affect: normal affect Attitude: cooperative Thought process: Normal thought process present Coding Level of Care Code Est Pt Level 4 (94944) Diagnoses Primary hypertension I10 Hypertension type: primary hypertension High cholesterol E78.00 Morbid obesity with BMI of 40.0-44.9, adult E66.01; Z68.41 Laboratory tests ordered as part of a complete physical exam (CPE) Z00.00 Assessment & Plan Assessment & Plan (1) High blood pressure: Code(s): I10 - Essential (primary) hypertension Category: Medical Qualifiers: Hypertension type: primary hypertension Qualified Code(s): I10 - Essential (primary) hypertension Plan: Resting blood pressure is 134/70, within goal of less than 140/90. Continue current treatment regimen. Low-sodium diet encouraged. Perform lab work and follow-up for an extended physical exam and labs review in 2 months. Return sooner with symptoms or concerns. Verbalized understanding and agreed with the plan (2) High cholesterol: Code(s): E78.00 - Pure hypercholesterolemia, unspecified Category: Medical Plan: Recent triglyceride, total cholesterol, and LDL levels are normal; HDL level is slightly low, 36. Continue current management. Advised to limit foods high in saturated fat and avoid foods high in trans fat. Routine exercise encouraged. Will monitor lipid panel level annually or as needed. Verbalized understanding and agreed with the plan. (3) Morbid obesity with BMI of 40.0-44.9, adult: Code(s): E66.01 - Morbid (severe) obesity due to excess calories; Z68.41 - Body mass index [BMI] 40.0-44.9, adult Category: Medical Plan: He notes he has been making healthy lifestyle changes. However, he has not been able to lose weight. He wants a referral to a linen room houseperson. He currently weighs 305 lb, BMI is 43.8. Healthy diet and routine exercise encouraged. Referred to [facility] linen room houseperson/dietitian. Verbalized understanding and agreed with the plan. (4) Laboratory tests ordered as part of a complete physical exam (CPE): Code(s): Z00.00 - Encounter for general adult medical examination without abnormal findings Category: Medical Plan: Fasting labs ordered as part of a complete physical exam. Advised to fast for at least 10 hours before getting labs drawn. May drink water Verbalized understanding and agreed with treatment plan. Orders: Orders Comprehensive [place]. Panel Fast Today Z00.00 - Encounter for general adult medical examination without abnormal findings Microalbumin, Random (w Creat) Today Z00.00 - Encounter for general adult medical examination without abnormal findings PSA, Ultra Sensitive Today Z00.00 - Encounter for general adult medical examination without abnormal findings TSH reflex Free T4 Today Z00.00 - Encounter for general adult medical examination without abnormal findings Complete Blood Count Auto Diff Today Z00.00 - Encounter for general adult medical examination without abnormal findings UA CC w/rflx Micro + Cult Today Z00.00 - Encounter for general adult medical examination without abnormal findings Vitamin D 25-OH Total Today Z00.00 - Encounter for general adult medical examination without abnormal findings Referrals Nutrition/Dietitian Referral E66.01 - Morbid (severe) obesity due to excess calories, Z68.41 - Body mass index [BMI] 40.0-44.9, adult
[2024-09-01 15:30] VITALS: BP 151/69; PULSE 61; RESP 16; TEMP 36.8; O2SAT 96; BMI 43.8
[2024-09-01 16:04] VITALS: BP 134/70
== END 2024-09-01 16:09 | disposition home or self-care (01) ==
LOC: HO.HMCFM 15:21
PROVIDERS: PCP Nurse Practitioner Family; Visit Provider Nurse Practitioner Family
DX: I10 Essential (primary) hypertension (principal); E78.00 Pure hypercholesterolemia, unspecified; E66.01 Morbid (severe) obesity due to excess calories; Z68.41 Body mass index [BMI] 40.0-44.9, adult; Z00.00 Encounter for general adult medical examination without abnormal findings

== ENCOUNTER 2024-10-09 09:08 | Outpatient (REF) | payer BC, SELFPAY ==
[2024-10-09 11:39] LABS: MANUAL DIFF FLAG NO
[2024-10-09 12:04] LABS: Hematocrit 44.8 % (42.0-52.0); Hemoglobin 14.6 g/dl (14.0-18.0); Imm Gran Abs Auto 0.08 X10*3/uL (0.00-0.03); Imm Gran Pct Auto 1.1 % (0.0-0.4); Lymphocytes Absolute Auto 1.9 X10*3/uL (1.2-4.9); Mean Corpuscular HGB Conc 32.6 g/dl (31.0-36.0); Mean Corpuscular Hemoglobin 29.3 pg (27.0-33.0); Mean Corpuscular Volume 89.8 fL (80.0-98.0); NRBC Abs Auto 0.000 X10*3/uL (0.0-0.012); NRBC Pct Auto 0.0 /100WBC (0.0-0.2); Platelet Count 206 X10*3/uL (160-400); Red Blood Count 4.99 X10*6/uL (4.60-5.80); White Blood Count 7.3 X10*3/uL (4.8-10.8)
[2024-10-09 12:05] LABS: Appearance Urine Clear; Glucose Urine UA Negative (Negative); PH 5.5 (5.0-9.0); Specific Gravity - Urine 1.025 (1.005-1.025)
[2024-10-09 13:07] LABS: Alanine Aminotransferase 86 U/L (0-40); Albumin Level 4.3 g/dL (3.5-5.0); Alkaline Phosphatase 92 U/L (39-117); Anion Gap 10 (12-20); Aspartate Amino Transferase 44 U/L (5-37); Blood Urea Nitrogen 22 mg/dL (9-16); Calcium 9.1 mg/dL (8.4-10.2); Carbon Dioxide 31 mmol/L (22-29); Chloride 109 mmol/L (96-108); Estimated Glomerular Filt Rate > 60; Potassium 4.4 mmol/L (3.3-5.1); Sodium 146 mmol/L (135-145); Total Protein 7.2 g/dL (6.5-8.0)
[2024-10-09 13:09] LABS: Microalbum/Creatinine Ratio Ur 2.7 ug/mg cr (<30)
[2024-10-13 22:04] LABS: PSA, Ultra Sensitive 1.52 ng/mL
== END 2024-10-09 09:09 | disposition home or self-care (01) ==
LOC: HO.WFDLDS 09:08
PROVIDERS: Visit Provider Nurse Practitioner Family
DX: Z00.00 Encounter for general adult medical examination without abnormal findings (principal); Z12.5 Encounter for screening for malignant neoplasm of prostate
CPT/HCPCS: 36415; 80053; 81003; 82043; 82306; 82570; 84153; 84443; 85025

== ENCOUNTER 2024-10-20 10:09 | Outpatient (AMB) | payer BC, SELFPAY ==
--- NOTE | 2024-10-20 10:12 | A.OFFPC_ITS ---
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 Allergies No Known Allergies Allergy (Verified 10/20/24 10:54) Medication List - Last Reconciled 10/20/24 by Tc Bingham CNP aspirin (Adult Aspirin Regimen) 81 mg PO DAILY celecoxib (Celebrex) 200 mg PO DAILY cholecalciferol (vitamin D3) 25 mcg PO DAILY 90 days elderberry fruit mg PO BEDTIME lisinopril 20 mg PO DAILY 30 days simvastatin 40 mg PO DAILY 30 days Tobacco use date assessed: 10/20/24 Fall risk assessment: No Falls in past year Last assessed Fall Risk: 10/20/24 Dental Screening Dental Screen Date: 10/20/24 Did you have a dental visit in the last 12 months?: Yes Did you have a dental problem in the last 6 months where you did not have access to dental care?: No Was dental information given to patient?: Patient has dentist HPI HPI Comments History of Present Illness Details 64-year-old male presents for an extende d physical exam. He admits to taking his medications as prescribed without adverse reactions. Reports ongoing fatigue and lack of motivation. He works from a desk all day. Acute issue(s) - None Past Medical History - Hypertension, hyperlipidemia, obstruct yovana sleep apnea on CPAP, myopia, vitamin-D deficiency, morbid obesity, and osteoarthritis the right knee Social History - Nonsmoker. Does not vape. Does not dri nk alcohol. Denies recreational drug use - He generally eats unhealthy. Active bu t does not exercise. Generally sleep well Health maintenance - Last eye exam was in 02/[address] Encouraged to sign a release for his PCP to obtain ophthalmology record - Last dental visit was 4 months ago - Last tetanus vaccine was more than 10 years ago; received Tdap vaccine today - He is up-to-date on the shingles vacci ne - He has never been vaccinated for pneum onia. Encouraged to get vaccinated for PNA at the pharmacy - Has not been vaccinated for the flu ; declines vaccination - Last colonoscopy was with [facility] 2-3 years ago: Normal. Will request record for review Specialists - None [facility] Medical History High blood pressure High cholesterol Sleep apnea Surgical History History of dental surgery H/O left knee surgery History of cholecystectomy Family History Mother Early onset Alzheimer's dementia Ovarian cancer Father Lung cancer Emphysema lung Sister Stroke Social History Household Members: Spouse Housing: House Are you a primary acute care occupational therapist to a significant other at home: No Do you presently have visiting nurse or other home services: No 75 years or older and lives alone: No Alcohol intake: former Patient Tobacco Use Status: Never used Tobacco e-Cigarette/Vaping Use: Never Used Second Hand Smoke Exposure: No Special eliza needs: No service: No Current occupational status: employed Current occupation: sales Current occupational exposures/hazards: No Cognitive needs: No Hearing needs: No Vision needs: No (reading glasses) Questionnaire PHQ-9 Over the last 2 weeks, how often have you been bothered by any of the following problems? 1. Little interest or pleasure in doing things: several days 2. Feeling down, depressed, or hopeless: several days 3. Trouble falling or staying asleep, or sleeping too much: several days 4. Feeling tired or having little energy: more than half the days 5. Poor appetite or overeating: not at all 6. Feeling bad about yourself - or that you are a failure or have let yourself or your family down: not at all 7. Trouble concentrating on things, such as reading the newspaper or watching television: not at all 8. Moving or speaking so slowly that other people could have noticed. Or the opposite - being so fidgety or restless that you have been moving around a lot more than usual: not at all 9. Thoughts that you would be better off or of hurting yourself in some way: not at all Total score: 5 Depression Screening Interpretation: Positive Depression Screening Done: Yes 58279 - PHQ-9 Billing: Yes Source: Developed by Drs. Nikko Sharma, Faby Lozada, Luis Carlos House and colleagues, with an educational jesus from [employer]. Thrive Questionnaire Date Thrive assessed: 10/20/24 I am a: Patient What is your living situation today?: I have a steady place to live Within the past 12 months, did the food you bought not last and you didn't have the money to get more?: Never true Within the past 12 months, did you worry whether your food would run out before you got money to buy more?: Never true Do you have trouble paying for medicines?: No Do you have trouble getting transportation to medical appointments?: No Do you have trouble paying your heating and electricity bill?: No Do you have trouble taking care of your child, family member or friend?: I choose not to answer this question Do you have trouble with day-to-day activities such as bathing, preparing meals, shopping, managing finances, etc.?: No Are you currently unemployed and looking for a job?: No Are you interested in more education?: No Please select the resources that you would like help with: None Currently or been in a relationship where the following occur: No concerns rep orted THRIVE Score: 0 AUDIT C Alcohol Use Questionnaire (AUDIT-C) 1. How often do you have a drink containing alcohol?: Never 3. How often do you have six or more drinks on one occasion?: Never Total Score: 0 Score Reviewed/Action Taken: Yes KALA-7 AMB Questionnaire KALA-7 Date KALA - 7 assessed: 10/20/24 Feeling nervous, anxious, or on edge: 0 = Not at all Not being able to stop or control worryin = Not at all Worrying too much about different things: 0 = Not at all Trouble relaxin = Several days Being so restless that it is hard to sit still: 0 = Not at all Becoming easily annoyed or irritable: 1 = Several days Feeling afraid as if something awful might happen: 0 = Not at all Total KALA-7 score (0-4 normal; 5-9 mild; 10-14 moderate; 15-21 severe): 2 Source: Developed by Faby GalvanW. Neville, Luis Carlos House and colleagues, with an educational jesus from [employer]. KALA-7 Assessment Billing KALA-7 Assessment Tool: KALA-7 Assessment 97797 ACT Questionnaire In the past 4 weeks, how much of the time did your asthma keep you from getting as much done at work, school or at home?: None of the time During the past 4 weeks, how often have you had shortness of breath?: Not at all During the past 4 weeks, how often did your asthma symptoms wake you up at night or earlier than usual in the morning?: Once or twice per week During the past 4 weeks, how often have you had to use your rescue inhaler or nebulizer medication?: Not at all How would you rate your asthma control during the past 4 weeks?: Completely controlled ACT Interpretation: Positive Score: 24 Review of Systems Const Details: Denies chills, Reports fatigue, Denies fever(s), Denies headache(s) and Denies weakness HEENT Denies change in vision, Denies dizziness, Denies headache(s), Denies hearing loss, Denies nasal congestion, Denies sinus pain, Denies sinus pressure and Denies sore throat Card Denies chest pain, Denies lightheadedness, Denies dyspnea and Denies other (palpitations) Resp Denies cough, Denies dyspnea and Denies wheezing GI Denies abdominal pain, Denies melena, Denies hematochezia, Denies change in bowel habits, Denies dyspepsia and Denies nausea Denies hematuria and Denies dysuria Musc Denies abnormal gait, Denies myalgias, Denies arthralgias, Denies numbness and Denies tingling Skin/Breast Denies rash, Denies unusual bruising and Denies wounds Neuro Denies abnormal gait, Denies dizziness, Denies headache(s), Denies memory loss, Denies numbness, Denies Sensory deficit (Neuro), Denies tingling and Denies weakness Psych Denies anxiety, Denies depression and Denies memory loss Endo Denies cold intolerance, Reports fatigue, Denies heat intolerance, Denies polydipsia and Denies polyuria Arias/Lymph Denies easy bleeding and Denies easy bruising Aller/Immun Denies wheezing Physical exam (Primary Care) Vital Signs: Last Vital Signs Temp 98.3 F 10/20/24 10:33 Pulse 62 10/20/24 10:33 Resp 16 10/20/24 10:33 BP 150/84 H 10/20/24 11:00 Pulse Ox 97 10/20/24 10:33 Oxygen Delivery Method Room Air 10/20/24 10:33 BMI result Body Mass Index 44.2 Tobacco/Smoking Status: Tobacco use Status Tobacco use date assessed 10/20/24 10/20/24 10:39 Patient Tobacco Use Status Never used Tobacco 10/20/24 10:14 e-Cigarette/Vaping Use Never Used 10/20/24 10:14 PHQ-9: PHQ-9 Score PHQ-9: Total score 5 10/20/24 11:25 Depression Screening Interpretation: Positive Thrive Assessment: Date of Thrive Assessment Date Thrive assessed 10/20/24 10/20/24 10:28 Currently or been in a relationship where the following occur: No concerns r eported Const Other: General: no acute distress, well developed, alert and awake Nutritional Appearance: well nourished Orientation/consciousness: patient oriented x3 HENMT Head: Yes normocephalic and Yes atraumatic Ears: hearing grossly normal bilaterally and TM's normal bilaterally General nose exam: Normal external nose present and Normal nares present Mouth: Normal oral and palatal mucosa present and moist mucous membranes Teeth and gingiva: dentition normal Throat: Yes oropharynx normal Eyes Pupils: Equal, round and reactive pupils present and Pupil accommodation reflex normal EOM: EOMs intact bilaterally Neck Neck: Yes normal visual inspection, Yes no lymphadenopathy and Yes trachea midline Thyroid: Thyroid normal Carotids: no bruits Lymphatic: no lymphadenopathy noted Chest Chest palpation & inspection: normal inspection of the chest Resp Effort & Inspection: normal respiratory effort Auscultation: clear to auscultation bilaterally Cardio Rate: regular rate Rhythm: regular rhythm Heart sounds: S1 normal heart sound present, S2 normal heart sound present, no gallops, no murmurs and no rubs Bruits: no abdominal aortic bruits and no carotid bruits GI Palpation (GI): No Abdominal aortic bruit present, Soft to palpation, nontender, No hepatosplenomegaly present and No Rebound tenderness present Auscultation: normal bowel sounds General: Yes no CVA tenderness Back/Spine/Pelvis Back: no CVA tenderness Cervical Spine: cervical ROM normal and No Cervical spine tenderness Thoracic/Lumbar Spine: thoraco-lumbar ROM normal, No pain with thoraco-lumbar ROM, No thoracic spinal tenderness and No lumbar spinal tenderness Skin General: warm and dry. Normal skin color. Normal skin turgor Lesions: no lesions Rashes: no rashes Trauma: no lacerations or abrasions Wounds: no wounds Nails: normal Neuro General: patient oriented x3, gait normal and CN's II-XI intact bilaterally Cranial nerves: Yes Equal, round and reactive pupils present Cognition (Neuro): normal cognition Gait exam (Neuro): Normal gait present Motor exam (neuro): 5/5 motor strength present throughout Sensory Exam: No Sensory deficit (Neuro) Deep tendon reflexes (DTR's): Right patellar reflex intensity grade: 2+ and Left patellar reflex intensity grade: 2+ Extrem General: Yes normal to inspection, No edema and No calf tenderness Psych Appearance: grossly normal Affect: normal affect Attitude: cooperative Thought process: Normal thought process present Immunizations Boostrix Tdap 2.5 Lf unit-8 mcg-5 Lf/0.5 mL intramuscular syringe Performing Provider: Tc Bingham CNP [place] [facility] [place] [facility] Administered by: Romulo Azevedo RN on 10/20/24 11:26 Dose Route Admin Location Dispensed Lot Number Expiration Date [facility] [employer] 0.5 mL IM Right Deltoid 0.5 mL [id number] 12/01/26 01552-924-36 [employer] Total Dispensed Waste 0.5 mL 0 % 2 VIS Given Date VIS Provided VIS Publication Date 10/20/24 Single Vaccine 20 Eligibility Eligibility Date Funding Source Not [facility] Eligible 10/20/24 Private Coding Level of Care Code Est Pt Level 4 (71594) Est Pt Prev Care >65y(25501) Diagnoses Normal physical examination, routine Z00.00 Primary hypertension I10 Hypertension type: primary hypertension Transaminitis R74.01 Morbid obesity with BMI of 40.0-44.9, adult E66.01; Z68.41 Fatigue R53.83 Additional Codes Asthma Control Questionnaire - ACT Interpretation: Positive ([id number]) KALA-7 Assessment Billing - KALA-7 Assessment Tool: KALA-7 Assessment 59114 ([id number]) PHQ-9 - 70468 - PHQ-9 Billing: Yes ([id number]) Assessment & Plan Assessment & Plan (1) Normal physical examination, routine: Code(s): Z00.00 - Encounter for general adult medical examination without abnormal findings Category: Medical Plan: No significant functional limitation noted. Continue current treatment regimen. Follow-up for hypertension in 1 month. Return sooner with symptoms or concerns. Verbalized understanding and agreed with the plan. (2) High blood pressure: Code(s): I10 - Essential (primary) hypertension Category: Medical Qualifiers: Hypertension type: primary hypertension Qualified Code(s): I10 - Essential (primary) hypertension Plan: Resting blood pressure is 150/84, above goal of less than 140/90. Lisinopril increased to 30 mg daily; advised to take as prescribed. Low-sodium diet encouraged. Advised to monitor blood pressure at least 2 times weekly, record readings, and bring to next appointment. Follow-up in 1 or sooner with symptoms or concerns. Verbalized understanding and agreed with the plan. (3) Transaminitis: Code(s): R74.01 - Elevation of levels of liver transaminase levels Category: Medical Plan: Recent AST and ALT are elevated, 44/86 respectively. Lab results otherwise unremarkable. No acute symptoms. Likely hepatic steatosis. Routine exercise and diet/weight management and encouragement. Will recheck liver panel in 3 months. Verbalized understanding and agreed with the plan. (4) Morbid obesity with BMI of 40.0-44.9, adult: Code(s): E66.01 - Morbid (severe) obesity due to excess calories; Z68.41 - Body mass index [BMI] 40.0-44.9, adult Category: Medical Plan: Currently weighs 308 lb, BMI is 44.2. Healthy diet and routine exercise encouraged. [place] [facility] [place]iet[place]. Follow-up as needed. Verbalized understanding and agreed with the plan. (5) Fatigue: Code(s): R53.83 - Other fatigue Category: Medical Plan: Reports ongoing fatigue and lack of motivation. He works from a desk all day. Recent labs including CBC, TSH, and vitamin-D levels are unrevealing. Routine exercise/which management encouraged. Follow-up with worsening or new symptoms. Verbalized understanding and agreed with the plan. Orders: Orders TDaP Immunization Today Z23 - Encounter for immunization Liver Panel 3 Months R74.01 - Elevation of levels of liver transaminase levels Medications: New lisinopril 30 mg PO DAILY 30 tabs 3RF 30 days Discontinued lisinopril Discontinued Reason: Doctor's Order 20 mg PO DAILY 30 days 30 tabs 3RF
[2024-10-20 10:33] VITALS: BP 158/71; PULSE 62; RESP 16; TEMP 36.8; O2SAT 97; BMI 44.2
[2024-10-20 11:00] VITALS: BP 150/84
== END 2024-10-20 11:25 | disposition home or self-care (01) ==
LOC: HO.HMCFM 10:09
PROVIDERS: PCP Nurse Practitioner Family; Visit Provider Nurse Practitioner Family
DX: Z00.00 Encounter for general adult medical examination without abnormal findings (principal); I10 Essential (primary) hypertension; E66.01 Morbid (severe) obesity due to excess calories; Z68.41 Body mass index [BMI] 40.0-44.9, adult; R74.01 Elevation of levels of liver transaminase levels; R53.83 Other fatigue; Z23 Encounter for immunization

== ENCOUNTER → 2024-10-20 10:09 | Outpatient (BNVA) | payer BC, SELFPAY | PROVIDERS: PCP Nurse Practitioner Family; Visit Provider Nurse Practitioner Family | DX: Z00.00 Encounter for general adult medical examination without abnormal findings (principal); I10 Essential (primary) hypertension; R74.01 Elevation of levels of liver transaminase levels; E66.01 Morbid (severe) obesity due to excess calories; R53.83 Other fatigue; Z23 Encounter for immunization; Z68.41 Body mass index [BMI] 40.0-44.9, adult | CPT/HCPCS: 90471; 90715; 96127; 96160 ==

== ENCOUNTER 2024-10-29 14:12 | Outpatient (AMB) | payer BC, SELFPAY ==
--- NOTE | 2024-10-29 14:39 | A.OFFVIS_ITS ---
VS Expanded 10/29/24 14:40 11/05/24 12:56 Height 5 ft 10 in 5 ft 10 in Weight 309 lb 1.409 oz 309 lb BMI 44.3 44.3 Intake Visit Reasons: Morbid (severe) obesity due to excess calories Allergies No Known Allergies Allergy (Verified 10/20/24 10:54) Nutrition Presentation Details: Pt presents for MNT for morbid obesity Food frequency fruits: 0-1/d ve-2/wk dairy 1-2/d fish: 0-1/m beverages: water, juice diluted, low sugar beverages , 32 oz/d etoh/smoking---- BS Monitoring Most Recent Diabetes Results: Microalb/Creat Ratio, (<30) 2.7 ug/mg cr 10/09/24 Cholesterol, (<200) 133 mg/dL 07/29/24 HDL Cholesterol, (>40) 36 mg/dL L 07/29/24 Triglycerides, (<150) 85 mg/dL 07/29/24 Creatinine, (0.5-1.4) 1.04 mg/dL 10/09/24 BUN, (9-16) 22 mg/dL H 10/09/24 Sodium, (135-145) 146 mmol/L H 10/09/24 Potassium, (3.3-5.1) 4.4 mmol/L 10/09/24 Chloride, (96-108) 109 mmol/L H 10/09/24 Carbon Dioxide, (22-29) 31 mmol/L H 10/09/24 Calcium, (8.4-10.2) 9.1 mg/dL 10/09/24 AST, (5-37) 44 U/L H 10/09/24 ALT, (0-40) 86 U/L H 10/09/24 Total Protein, (6.5-8.0) 7.2 g/dL 10/09/24 Albumin, (3.5-5.0) 4.3 g/dL 10/09/24 TGT-Axhnwif-Wp.Jeor Equation Height: 5 ft 10 in Weight: 309 lb Resting Metabolic Rate: 2196.65 Calculated Activity Level: Sedentary Calories Needed to Maintain Weight: 2635.98 Diagnosis Nutrition problem #1: overweight/obesity As related to (etiology) #1: diagnosis As evidenced by (sign/symptom) #1: knowledge deficit of diet [facility] Medical History High blood pressure High cholesterol Sleep apnea Surgical History History of dental surgery H/O left knee surgery History of cholecystectomy Family History Mother Early onset Alzheimer's dementia Ovarian cancer Father Lung cancer Emphysema lung Sister Stroke Social History Household Members: Spouse Housing: House Are you a primary family day care provider to a significant other at home: No Do you presently have visiting nurse or other home services: No 75 years or older and lives alone: No Alcohol intake: former Patient Tobacco Use Status: Never used Tobacco e-Cigarette/Vaping Use: Never Used Second Hand Smoke Exposure: No Special eliza needs: No service: No Current occupational status: employed Current occupation: sales Current occupational exposures/hazards: No Cognitive needs: No Hearing needs: No Vision needs: No (reading glasses) Assessment & Plan Assessment & Plan (1) Morbid obesity with BMI of 40.0-44.9, adult: Code(s): E66.01 - Morbid (severe) obesity due to excess calories; Z68.41 - Body mass index [BMI] 40.0-44.9, adult Category: Medical Plan: current wt: 140 kg ( 925 ) est kcal needs as per MSJ: 2630 est protein needs as per 1 g/kg BW: 140 est fluid needs as per 30 ml/kg BW: 4200 Recommended fiber > 12 g /day and gradually increase up to 25-28 g /day or as tolerated Nutrition topics discussed : Reviewed (R), Pt verbalized understanding (V) , not applicable (N/A) R, : Healthy Plate Method Concept: R, : Carbohydrates: food sources of carbohydrates, relationship of carbohydrates to blood glucose, fatty liver GI health. Recommended total amount of carbohydrates per meals and snack. Differences between simple carbohydrates and complex carbohydrates R, : Lean protein foods including vegan , vegetarian sources of protein. Benefits of protein (including but not limited to healing, nutritional value , benefits in weight loss, glucose control R, : Fats : Source of fats, benefits of fats. Difference between saturated and unsaturated fats. Saturated fats and its contribution to inflammation R, : Fiber: food sources and role of fiber in the diet (including but not limited to its role as a prebiotic, benefits in constipation, role in IBS , role in glucose control and cholesterol level) R, V, N/A: Hydration: role of hydration and prevention of dehydration or over hydration. Foods and water content. R, V, N/A: Vitamins and Minerals in foods and supplements R, V, N/A: Interpreting food labels, including serving size, macronutrients, vitamins, minerals, allergens, ingredient list , % daily value Patient Instructions: Work on reducing total carb to 80 g or less per meal (3 meals/day) choose complex carb and include lean protein Choose water, low sugar beverages Practice mindful eating Coding Level of Care Code Nutr Indiv Intake (81298) Diagnoses Morbid obesity with BMI of 40.0-44.9, adult E66.01; Z68.41 Time Spent (min) 30
[2024-10-29 14:40] VITALS: BMI 44.3
[2024-11-05 12:56] VITALS: BMI 44.3
== END 2024-10-29 15:21 | disposition home or self-care (01) ==
LOC: HO.ENCR 14:13
PROVIDERS: PCP Nurse Practitioner Family; Visit Provider Dietitian, Registered
DX: E66.01 Morbid (severe) obesity due to excess calories (principal); Z68.41 Body mass index [BMI] 40.0-44.9, adult

== ENCOUNTER → 2024-10-29 14:12 | Outpatient (BNVA) | payer BC, SELFPAY | PROVIDERS: PCP Nurse Practitioner Family; Visit Provider Dietitian, Registered | DX: E66.01 Morbid (severe) obesity due to excess calories (principal); Z68.41 Body mass index [BMI] 40.0-44.9, adult; Z71.3 Dietary counseling and surveillance | CPT/HCPCS: 97802 ==

== ENCOUNTER 2024-12-01 11:34 | Outpatient (AMB) | payer BC, SELFPAY ==
--- NOTE | 2024-12-01 11:36 | MHC.PC.OV ---
Vital Signs 12/01/24 11:42 12/01/24 12:01 Height 5 ft 10 in Weight 309 lb 8 oz BMI 44.4 BP 159/71 H 150/76 H Blood Pressure Location Rt brachial Rt brachial Position Sitting Sitting Respiration 16 Pulse 69 Pulse Source Pulse Oximeter Temp 98.0 F Temp Source Oral Pulse Oximetry (%) 95 Oxygen Delivery Method Room Air Intake Visit Reasons: 1 mos HTN Intake Note: patient here for follow up on HTN Head Of Design Required: No Allergies No Known Allergies Allergy (Verified 12/01/24 11:58) Medication List - Last Reconciled 12/01/24 by Tc Bingham CNP aspirin (Adult Aspirin Regimen) 81 mg PO DAILY celecoxib (Celebrex) 200 mg PO DAILY cholecalciferol (vitamin D3) 25 mcg PO DAILY 90 days elderberry fruit mg PO BEDTIME lisinopril 30 mg PO DAILY 30 days simvastatin 40 mg PO DAILY 30 days Tobacco use date assessed: 12/01/24 Fall risk assessment: 1 Fall in past year Last assessed Fall Risk: 12/01/24 Dental Screening Dental Screen Date: 12/01/24 Did you have a dental visit in the last 12 months?: Yes Did you have a dental problem in the last 6 months where you did not have access to dental care?: No Was dental information given to patient?: Patient has dentist HPI HPI Comments History of Present Illness Details 64-year-old male presents for hypertension follow-up. He admits to taking his medications as prescribed without adverse reactions. He notes that he has been making healthy lifestyle changes. He has been walking a couple times a week and intends to start the gym soon. He started seeing a outboard motorboat operator at [facility] at the end of last month. He reports soreness to both knees which he attributes to a fall a week ago. He was taking garbage outside when he slipped and fell, landing on both knees. He has been taking Celebrex as prescribed. ON LICENSE OF [facility] Medical History High blood pressure High cholesterol Sleep apnea Surgical History History of dental surgery H/O left knee surgery History of cholecystectomy Family History Mother Early onset Alzheimer's dementia Ovarian cancer Father Lung cancer Emphysema lung Sister Stroke Social History Household Members: Spouse Housing: House Are you a primary care management coordinator to a significant other at home: No Do you presently have visiting nurse or other home services: No 75 years or older and lives alone: No Alcohol intake: former Patient Tobacco Use Status: Never used Tobacco e-Cigarette/Vaping Use: Never Used Second Hand Smoke Exposure: No Special eliza needs: No service: No Current occupational status: employed Current occupation: sales Current occupational exposures/hazards: No Cognitive needs: No Hearing needs: No Vision needs: No (reading glasses) Questionnaire Thrive Questionnaire Date Thrive assessed: 04/28/24 I am a: Patient What is your living situation today?: I have a steady place to live Within the past 12 months, did the food you bought not last and you didn't have the money to get more?: Never true Within the past 12 months, did you worry whether your food would run out before you got money to buy more?: Never true Do you have trouble paying for medicines?: No Do you have trouble getting transportation to medical appointments?: No Do you have trouble paying your heating and electricity bill?: No Do you have trouble taking care of your child, family member or friend?: I choose not to answer this question Do you have trouble with day-to-day activities such as bathing, preparing meals, shopping, managing finances, etc.?: No Are you currently unemployed and looking for a job?: No Are you interested in more education?: No Please select the resources that you would like help with: None Currently or been in a relationship where the following occur: No concerns reported THRIVE Score: 0 KALA-7 AMB Questionnaire KALA-7 Date KALA - 7 assessed: 10/20/24 Source: Developed by Drs. Nikko Sharma, Faby Lozada, Luis Carlos House and colleagues, with an educational jesus from [employer]. Review of Systems Const Details: Const Denies chills, Denies fatigue, Denies fever(s), Denies headache(s) and Denies weakness ENT Denies dizziness and Denies headache(s) Card Denies chest pain, Denies lightheadedness, Denies dyspnea and Denies other (Palpitations) Resp Denies cough, Denies dyspnea, Denies wheezing and Denies other ( shortness of breath) GI Denies abdominal pain, Denies melena, Denies hematochezia, Denies change in bowel habits, Denies dyspepsia and Denies nausea Denies hematuria and Denies dysuria Musc Reports as per HPI Skin/Breast Denies rash, Denies unusual bruising and Denies wounds Neuro Denies abnormal gait, Denies dizziness, Denies headache(s), Denies memory loss, Denies numbness, Denies Sensory deficit (Neuro), Denies tingling and Denies weakness Psych Denies anxiety, Denies depression, Denies memory loss Endo Denies cold intolerance, Denies fatigue, Denies heat intolerance, Denies polydipsia and Denies polyuria Aller/Immun Denies wheezing Physical exam (Primary Care) Vital Signs: Last Vital Signs Temp 98.0 F 12/01/24 11:42 Pulse 69 12/01/24 11:42 Resp 16 12/01/24 11:42 BP 159/71 H 12/01/24 11:42 Pulse Ox 95 12/01/24 11:42 Oxygen Delivery Method Room Air 12/01/24 11:42 BMI result Body Mass Index 44.4 Tobacco/Smoking Status: Tobacco use Status Tobacco use date assessed 12/01/24 12/01/24 11:44 Patient Tobacco Use Status Never used Tobacco 12/01/24 11:38 e-Cigarette/Vaping Use Never Used 12/01/24 11:38 Thrive Assessment: Date of Thrive Assessment Date Thrive assessed 04/28/24 12/01/24 11:38 Currently or been in a relationship where the following occur: No concerns reported Const Other: General: no acute distress and well developed Nutritional Appearance: well nourished Orientation/consciousness: patient oriented x3 HENMT Head: Yes normocephalic and Yes atraumatic Eyes General: appearance normal, both eyes and all related structures Pupils: Equal, round and reactive pupils present EOM: EOMs intact bilaterally Resp Effort & Inspection: normal respiratory effort Auscultation: clear to auscultation bilaterally Cardio Rate: regular rate Rhythm: regular rhythm Heart sounds: S1 normal heart sound present, S2 normal heart sound present, no gallops, no murmurs and no rubs GI Palpation (GI): No Abdominal aortic bruit present, Soft to palpation, nontender, No hepatosplenomegaly present and No Rebound tenderness present Auscultation: normal bowel sounds General: Yes no CVA tenderness Back/Spine/Pelvis Back: no CVA tenderness Cervical Spine: cervical ROM normal and No Cervical spine tenderness Thoracic/Lumbar Spine: thoraco-lumbar ROM normal, No pain with thoraco-lumbar ROM, No thoracic spinal tenderness and No lumbar spinal tenderness Extrem General: Yes normal to inspection, No edema and No calf tenderness Skin General: warm and dry. Normal skin color. Normal skin turgor Neuro General: patient oriented x3, gait normal and no focal neuro deficit Cranial nerves: Yes Equal, round and reactive pupils present Cognition (Neuro): normal cognition Gait exam (Neuro): Normal gait present Sensory Exam: No Sensory deficit (Neuro) Psych Appearance: grossly normal Affect: normal affect Attitude: cooperative Thought process: Normal thought process present Coding Level of Care Code Est Pt Level 4 (52146) Complex EM visit Add On [id number] Diagnoses Primary hypertension I10 Hypertension type: primary hypertension Bilateral knee pain M25.561; M25.562 Assessment & Plan Assessment & Plan (1) High blood pressure: Code(s): I10 - Essential (primary) hypertension Category: Medical Qualifiers: Hypertension type: primary hypertension Qualified Code(s): I10 - Essential (primary) hypertension Plan: Resting blood pressure is 150/76, above goal of less than 140/90. Lisinopril increased to 40 mg daily; advised to take as prescribed. Weight management and low-sodium diet encouraged. Blood pressure monitor ordered. Advised to check blood pressure 2-3 times weekly, record readings, and bring to next appointment. Report blood pressure readings persistently above 140/90. Follow-up in 1 month or sooner with symptoms or concerns. Verbalized understanding and agreed with the plan. (2) Bilateral knee pain: Code(s): M25.561 - Pain in right knee; M25.562 - Pain in left knee Category: Medical Plan: Reports soreness to both knees which he attributes to a fall a week ago. He was taking garbage outside when he slipped and fell, landing on both knees. He has been taking Celebrex as prescribed. Celebrex as prescribed. Warm/cool compresses encouraged. Instructed on safety to prevent fall. Follow-up as needed. Verbalized understanding and agreed with the plan. Medications: New lisinopril 40 mg PO DAILY 30 tabs 3RF 30 days Discontinued lisinopril Discontinued Reason: Doctor's Order 30 mg PO DAILY 30 days 30 tabs 3RF
[2024-12-01 11:42] VITALS: BP 159/71; PULSE 69; RESP 16; TEMP 36.7; O2SAT 95; BMI 44.4
[2024-12-01 12:01] VITALS: BP 150/76
== END 2024-12-01 12:07 | disposition home or self-care (01) ==
LOC: HO.HMCFM 11:35
PROVIDERS: PCP Nurse Practitioner Family; Visit Provider Nurse Practitioner Family
DX: I10 Essential (primary) hypertension (principal); M25.561 Pain in right knee; M25.562 Pain in left knee

== ENCOUNTER 2024-12-24 12:15 | Outpatient (AMB) | payer BC, SELFPAY ==
[2024-12-24 12:29] VITALS: BMI 43.3
--- NOTE | 2024-12-24 12:29 | MHC.AMNUTRGE ---
VS Expanded 12/24/24 12:29 Height 5 ft 10 in Weight 301 lb 10 oz BMI 43.3 Intake Visit Reasons: Morbid (severe) obesity due to excess calories Allergies No Known Allergies Allergy (Verified 12/01/24 11:58) Nutrition Presentation Details: Pt presents for MNT for obesity Beverages: 40-50 oz of water, no soda Pt reports cutting on empty calorie foods snacking on veggies , almonds Choosing salads with chicken in the evening Food frequency Fruits 0-2 day Vegetables 1-2 daily Milk or dairy: 3 times a day Fish 0 to once a week Beverages: 46-64 oz per day working on having more water BS Monitoring Most Recent Diabetes Results: Microalb/Creat Ratio, (<30) 2.7 ug/mg cr 10/09/24 Cholesterol, (<200) 133 mg/dL 07/29/24 HDL Cholesterol, (>40) 36 mg/dL L 07/29/24 Triglycerides, (<150) 85 mg/dL 07/29/24 Creatinine, (0.5-1.4) 1.04 mg/dL 10/09/24 BUN, (9-16) 22 mg/dL H 10/09/24 Sodium, (135-145) 146 mmol/L H 10/09/24 Potassium, (3.3-5.1) 4.4 mmol/L 10/09/24 Chloride, (96-108) 109 mmol/L H 10/09/24 Carbon Dioxide, (22-29) 31 mmol/L H 10/09/24 Calcium, (8.4-10.2) 9.1 mg/dL 10/09/24 AST, (5-37) 44 U/L H 10/09/24 ALT, (0-40) 86 U/L H 10/09/24 Total Protein, (6.5-8.0) 7.2 g/dL 10/09/24 Albumin, (3.5-5.0) 4.3 g/dL 10/09/24 TUB-[id number]-Ps.Jeor Equation Height: 5 ft 10 in Weight: 302 lb Resting Metabolic Rate: 2164.93 Calculated Activity Level: Sedentary Calories Needed to Maintain Weight: 2597.92 Diagnosis Nutrition problem #1: overweight/obesity As related to (etiology) #1: diagnosis As evidenced by (sign/symptom) #1: high BMI and knowledge deficit of diet [facility] Medical History High blood pressure High cholesterol Sleep apnea Surgical History History of dental surgery H/O left knee surgery History of cholecystectomy Family History Mother Early onset Alzheimer's dementia Ovarian cancer Father Lung cancer Emphysema lung Sister Stroke Social History Household Members: Spouse Housing: House Are you a primary neurocritical care physician to a significant other at home: No Do you presently have visiting nurse or other home services: No 75 years or older and lives alone: No Alcohol intake: former Patient Tobacco Use Status: Never used Tobacco e-Cigarette/Vaping Use: Never Used Second Hand Smoke Exposure: No Special eliza needs: No service: No Current occupational status: employed Current occupation: sales Current occupational exposures/hazards: No Cognitive needs: No Hearing needs: No Vision needs: No (reading glasses) Assessment & Plan Assessment & Plan (1) Morbid obesity with BMI of 40.0-44.9, adult: Code(s): E66.01 - Morbid (severe) obesity due to excess calories; Z68.41 - Body mass index [BMI] 40.0-44.9, adult Category: Medical Plan: current wt: 140 kg ( 925 ) est kcal needs as per MSJ: 2630 est protein needs as per 1 g/kg BW: 140 est fluid needs as per 30 ml/kg BW: 4200 Recommended fiber > 12 g /day and gradually increase up to 25-28 g /day or as tolerated Nutrition topics discussed : Reviewed (R), Pt verbalized understanding (V) , not applicable (N/A) R, : Healthy Plate Method Concept: R, : Carbohydrates: food sources of carbohydrates, relationship of carbohydrates to blood glucose, fatty liver GI health. Recommended total amount of carbohydrates per meals and snack. Differences between simple carbohydrates and complex carbohydrates R, : Lean protein foods including vegan , vegetarian sources of protein. Benefits of protein (including but not limited to healing, nutritional value , benefits in weight loss, glucose control R, : Fats : Source of fats, benefits of fats. Difference between saturated and unsaturated fats. Saturated fats and its contribution to inflammation R, : Fiber: food sources and role of fiber in the diet (including but not limited to its role as a prebiotic, benefits in constipation, role in IBS , role in glucose control and cholesterol level) R, V, N/A: Hydration: role of hydration and prevention of dehydration or over hydration. Foods and water content. R, V, N/A: Vitamins and Minerals in foods and supplements R, V, N/A: Interpreting food labels, including serving size, macronutrients, vitamins, minerals, allergens, ingredient list , % daily value Patient Instructions: Work on having 3 scheduled meals per day, following healthy plate method Practice mindful eating See 2500 calorie meal plan for now Coding Level of Care Code Nutr Indiv Intake (47147) Diagnoses Morbid obesity with BMI of 40.0-44.9, adult E66.01; Z68.41 Time Spent (min) 30
[2024-12-30 15:09] VITALS: BMI 43.3
== END 2024-12-24 12:57 | disposition home or self-care (01) ==
LOC: HO.ENCR 12:16
PROVIDERS: PCP Nurse Practitioner Family; Visit Provider Dietitian, Registered
DX: E66.01 Morbid (severe) obesity due to excess calories (principal); Z68.41 Body mass index [BMI] 40.0-44.9, adult

== ENCOUNTER → 2024-12-24 12:15 | Outpatient (BNVA) | payer BC, SELFPAY | PROVIDERS: PCP Nurse Practitioner Family; Visit Provider Dietitian, Registered | DX: E66.01 Morbid (severe) obesity due to excess calories (principal); Z68.41 Body mass index [BMI] 40.0-44.9, adult; Z71.3 Dietary counseling and surveillance | CPT/HCPCS: 97802 ==

== ENCOUNTER 2025-01-01 12:53 | Outpatient (AMB) | payer BC, SELFPAY ==
--- NOTE | 2025-01-01 12:54 | A.OFFPC_ITS ---
Vital Signs 01/01/25 12:59 01/01/25 13:20 Height 5 ft 10 in Weight 304 lb BMI 43.6 BP 148/64 H 110/64 Blood Pressure Location Lt brachial Lt brachial Position Sitting Sitting Respiration 16 Pulse 58 Pulse Source Palpation Temp 97.5 F Temp Source Oral Pulse Oximetry (%) 99 Oxygen Delivery Method Room Air Intake Visit Reasons: 1 mos HTN Intake Note: patient here for 1 month follow up for HTN Merchandise Flow Associate Required: No Allergies No Known Allergies Allergy (Verified 01/01/25 13:14) Medication List - Last Reconciled 01/01/25 by Tc Bingham CNP aspirin (Adult Aspirin Regimen) 81 mg PO DAILY celecoxib (Celebrex) 200 mg PO DAILY cholecalciferol (vitamin D3) 25 mcg PO DAILY 90 days elderberry fruit mg PO BEDTIME lisinopril 40 mg PO DAILY 30 days miscellaneous medical supply One large blood pressure monitor/cuff simvastatin 40 mg PO DAILY 30 days Tobacco use date assessed: 01/01/25 Fall risk assessment: 1 Fall in past year Last assessed Fall Risk: 01/01/25 Dental Screening Dental Screen Date: 01/01/25 Did you have a dental visit in the last 12 months?: Yes Did you have a dental problem in the last 6 months where you did not have access to dental care?: No Was dental information given to patient?: Patient has dentist HPI HPI Comments History of Present Illness Details 64-year-old male presents for hypertensi on follow-up. He admits to taking his medications as prescribed without adverse reactions. He notes that he has been making healthy lifestyle changes. He offers no complaints and denies acute symptoms at this time. [facility] Medical History High blood pressure High cholesterol Sleep apnea Surgical History History of dental surgery H/O left knee surgery History of cholecystectomy Family History Mother Early onset Alzheimer's dementia Ovarian cancer Father Lung cancer Emphysema lung Sister Stroke Social History Household Members: Spouse Housing: House Are you a primary primary care physician to a significant other at home: No Do you presently have visiting nurse or other home services: No 75 years or older and lives alone: No Alcohol intake: former Patient Tobacco Use Status: Never used Tobacco e-Cigarette/Vaping Use: Never Used Second Hand Smoke Exposure: No Special eliza needs: No service: No Current occupational status: employed Current occupation: sales Current occupational exposures/hazards: No Cognitive needs: No Hearing needs: No Vision needs: No (reading glasses) Questionnaire Thrive Questionnaire Date Thrive assessed: 04/28/24 I am a: Patient What is your living situation today?: I have a steady place to live Within the past 12 months, did the food you bought not last and you didn't have the money to get more?: Never true Within the past 12 months, did you worry whether your food would run out before you got money to buy more?: Never true Do you have trouble paying for medicines?: No Do you have trouble getting transportation to medical appointments?: No Do you have trouble paying your heating and electricity bill?: No Do you have trouble taking care of your child, family member or friend?: I choose not to answer this question Do you have trouble with day-to-day activities such as bathing, preparing meals, shopping, managing finances, etc.?: No Are you currently unemployed and looking for a job?: No Are you interested in more education?: No Please select the resources that you would like help with: None Currently or been in a relationship where the following occur: No concerns reported THRIVE Score: 0 KALA-7 AMB Questionnaire KALA-7 Date KALA - 7 assessed: 10/20/24 Source: Developed by Drs. Nikko Sharma, Faby Lozada, Luis Carlos House and colleagues, with an educational jesus from [employer]. Review of Systems Const Details: Const Denies chills, Denies fatigue, Denies fever(s), Denies headache(s) and Denies weakness ENT Denies dizziness and Denies headache(s) Card Denies chest pain, Denies lightheadedness, Denies dyspnea and Denies other (Palpitations) Resp Denies cough, Denies dyspnea, Denies wheezing and Denies other ( shortness of breath) GI Denies abdominal pain, Denies melena, Denies hematochezia, Denies change in bowel habits, Denies dyspepsia and Denies nausea Denies hematuria and Denies dysuria Musc Denies abnormal gait, Denies myalgias, Denies arthralgias, Denies numbness and Denies tingling Skin/Breast Denies rash, Denies unusual bruising and Denies wounds Neuro Denies abnormal gait, Denies dizziness, Denies headache(s), Denies memory loss, Denies numbness, Denies Sensory deficit (Neuro), Denies tingling and Denies weakness Psych Denies anxiety, Denies depression, Denies memory loss Endo Denies cold intolerance, Denies fatigue, Denies heat intolerance, Denies polydipsia and Denies polyuria Aller/Immun Denies wheezing Physical exam (Primary Care) Tobacco/Smoking Status: Tobacco use Status Tobacco use date assessed 12/01/24 01/01/25 12:57 Patient Tobacco Use Status Never used Tobacco 01/01/25 12:57 e-Cigarette/Vaping Use Never Used 01/01/25 12:57 Thrive Assessment: Date of Thrive Assessment Date Thrive assessed 04/28/24 01/01/25 12:57 Currently or been in a relationship where the following occur: No concerns reported Const Other: General: no acute distress and well developed Nutritional Appearance: well nourished Orientation/consciousness: patient oriented x3 HENMT Head: Yes normocephalic and Yes atraumatic Eyes General: appearance normal, both eyes and all related structures Pupils: Equal, round and reactive pupils present EOM: EOMs intact bilaterally Resp Effort & Inspection: normal respiratory effort Auscultation: clear to auscultation bilaterally Cardio Rate: regular rate Rhythm: regular rhythm Heart sounds: S1 normal heart sound present, S2 normal heart sound present, no gallops, no murmurs and no rubs Extrem General: Yes normal to inspection, No edema and No calf tenderness Skin General: warm and dry. Normal skin color. Normal skin turgor Neuro General: patient oriented x3, gait normal and no focal neuro deficit Cranial nerves: Yes Equal, round and reactive pupils present Cognition (Neuro): normal cognition Gait exam (Neuro): Normal gait present Sensory Exam: No Sensory deficit (Neuro) Psych Appearance: grossly normal Affect: normal affect Attitude: cooperative Thought process: Normal thought process present Coding Level of Care Code Est Pt Level 3 (10934) Diagnoses Primary hypertension I10 Hypertension type: primary hypertension Assessment & Plan Assessment & Plan (1) High blood pressure: Code(s): I10 - Essential (primary) hypertension Category: Medical Qualifiers: Hypertension type: primary hypertension Qualified Code(s): I10 - Essential (primary) hypertension Plan: Resting blood pressure is 110/64, within goal of less than 140/90. Continue current treatment regimen. Low-sodium diet encouraged. Follow-up for transfer of care with a new provider within our practice in 2-3 months. Return sooner with symptoms or concerns. Verbalized understanding and agreed with the plan.
[2025-01-01 12:59] VITALS: BP 148/64; PULSE 58; RESP 16; TEMP 36.4; O2SAT 99; BMI 43.6
[2025-01-01 13:20] VITALS: BP 110/64
== END 2025-01-01 13:22 | disposition home or self-care (01) ==
LOC: HO.HMCFM 12:54
PROVIDERS: PCP Nurse Practitioner Family; Visit Provider Nurse Practitioner Family
DX: I10 Essential (primary) hypertension (principal)